=== PATIENT | female | born 1965 | race Caucasian/White ===

== ENCOUNTER 2017-01-15 14:59 | Inpatient (IN) ==
[2017-01-15] MEDS ORDERED: Ondansetron 4 MG/2 ML VIAL IVP ONE (16:09)
[2017-01-15] MEDS ORDERED: *HR* HYDROmorphone (PF) 1 MG/ML SYRINGE IVP ONE (16:09)
--- NOTE | 2017-01-15 16:10 | Emergency Department Note ---
Disposition Clinical Impression: Superficial femoral artery occlusion Disposition: Admitted As Inpatient Referrals: Pardeep Schaeffer DO [Primary Care Provider] - Forms: ED Satisfaction Letter Extremity Problem HPI - General Chief complaint: ED Extremity Problem,Nontraumatic Stated complaint: Abnormal MARISELA right leg Source: patient Limitations: no limitations Nursing Notes Reviewed: Yes Vital Signs Reviewed: Yes - History of Present Illness Pt Subjective Complaint: extremity pain, extremity swelling Onset (ago): week(s) (1) Consistency: constant Injury Location: right, lower extremity Pain Scale: 10 Quality: aching Radiation: none Improves with: immobilization, elevation Worsens with: weight bearing, walking, palpation Associated symptoms: Reports: denies other symptoms - Related Data Home Medications Medication Instructions Recorded Confirmed Albuterol Sulfate 1 puff PO Q6-8H 04/13/15 01/09/17 Budesonide/Formoterol 160/4.5 2 puff IH BIDR 04/13/15 01/09/17 [Symbicort] CarBAMazepine XR [Tegretol Xr] 400 mg PO Q8HR 04/13/15 01/09/17 Duloxetine HCl 60 mg PO TID 04/13/15 01/09/17 Invega 1 tab PO DAILY 04/13/15 01/09/17 Invega 1 tab PO QPM 04/13/15 01/09/17 Lisinopril/Hydrochlorothiazide 1 tab PO DAILY 04/13/15 01/09/17 Metformin HCl 1 tab PO BID 04/13/15 01/09/17 Simvastatin 1 tab PO DAILY 04/13/15 01/09/17 Loratadine [Allergy Relief] 10 mg PO DAILY 06/29/16 01/09/17 SUMAtriptan [Imitrex] 50 mg PO DAILY 06/29/16 01/09/17 Previous Rx's Medication Instructions Recorded predniSONE [PredniSONE] 40 mg PO DAILY #10 tablet 06/29/16 GuaiFENesin/Dextromethorphan 1 each PO BID 7 Days 07/11/16 [Mucus Dm Max 1,200-60 mg Tab] Acetaminophen w/Cod 300-30 mg 1 each PO Q6HR #12 tablet 01/09/17 [Tylenol w/Codeine #3] Allergies Allergy/AdvReac Type Severity Reaction Status Date / Time divalproex sodium Allergy Unconscious Verified 01/15/17 15:10 [From Depakote] hydrocodone Allergy Itching Verified 01/15/17 15:10 orange Allergy Swelling Verified 01/15/17 15:10 of Lip/Tongue/Throat Penicillins [PCN] Allergy Rash Verified 01/15/17 15:10 venom-honey bee Allergy Swelling Verified 01/15/17 15:10 [bee venom (honey bee)] of Lip/Tongue/Throat All systems ED: reviewed and negative except as stated. 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 - Social History Smoking Status: Current every day smoker Smokeless Tobacco Status: No Alcohol use: Reports: none Drug use: Reports: marijuana Physical Exam - General Limitations: no limitations General appearance: alert - Head Head exam: atraumatic, normocephalic, normal inspection - Eye Eye exam: Present: normal appearance, PERRL, EOMI - ENT ENT exam: normal exam, normal oropharynx, mucous membranes moist - Neck Neck exam: Present: normal inspection, full ROM, trachea midline - Chest Chest inspection: Present: normal inspection, symmetric chest wall rise - Cardiovascular Cardiovascular exam: Present: regular rate, normal rhythm, normal heart sounds - Abdominal Exam Abdominal exam: Present: soft, Non-Tender. Absent: tenderness, distention, guarding, rebound, rigidity - Expanded Lower Extremity Exam Foot/toe exam: Present: other (right foot cool to touch, painful, ecchymosis) - Neurological Exam Neurological exam: Present: alert, oriented X3 - Psychiatric Psychiatric exam: Present: normal affect, normal mood Course Course Narrative: She was seen in the ER on the for syncope and right foot injury x-ray was negative she saw orthopedics today Dr. Brand who is concerned about her blood flow in the right lower extremity MARISELA on the right was 0.36. - Consultations Consultation #1: dr. alcaraz will see in ER Time: 18:21 Vital Signs Temperature 98.3 F 01/15/17 15:06 Pulse Rate 92 01/15/17 15:06 Respiratory Rate 20 01/15/17 15:06 Blood Pressure 134/82 01/15/17 15:06 O2 Sat by Pulse Oximetry 96 01/15/17 15:06 Temperature 98.3 F 01/15/17 15:06 Pulse Rate 85 01/15/17 16:53 Respiratory Rate 16 01/15/17 16:53 Blood Pressure 108/81 01/15/17 16:53 O2 Sat by Pulse Oximetry 95 01/15/17 16:53 Oxygen Delivery Oxygen Delivery Nasal Cannula Extremity Problem, Nontraumati - Medical Records Medical records reviewed: Yes I reviewed the patient's medical records. - Lab Data Lab results reviewed: Yes I reviewed the patient's lab results. Result diagrams: 01/15/17 16:28 01/15/17 16:28 Lab Results 01/15/17 01/15/17 01/15/17 Range/Units 16:28 16:28 16:28 WBC 12.3 H (4.3-11.1) K/mcL RBC 5.71 H (3.82-4.97) M/mcL Hgb 17.6 H (11.5-15.4) g/dL Hct 53.7 H (35.3-44.9) % MCV 94.0 (83.0-100.0) fL MCH 30.8 (28.0-33.3) pg MCHC 32.8 (31.6-35.5) g/dL RDW 16.1 H (11.5-14.5) % Plt Count 258 (140-400) K/mcL MPV 8.9 L (9.4-12.4) fL Immature Gran % 0.4 (0-4) % Seg Neutrophils % 76.0 % Lymphocytes % 16.4 % Monocytes % 5.6 % Eosinophils % 1.1 % Basophils % 0.5 % Neutrophils # 9.4 H (1.6-8.9) K/mcL Lymphocytes # 2.0 (0.6-4.6) K/mcL Monocytes # 0.7 (0.0-1.3) K/mcL Eosinophils # 0.1 (0.0-0.6) K/mcL Basophils # 0.1 (0.0-0.2) K/mcL PT 12.6 H (9.4-12.1) Seconds INR 1.2 APTT 28.7 (26.0-36.0) Seconds Sodium 143 (136-145) mEq/L Potassium 3.8 (3.5-4.5) mEq/L Chloride 104 (98-109) mEq/L Carbon Dioxide 29 (19-29) mEq/L BUN 14 (7-20) mg/dL Creatinine 0.78 (0.57-1.11) mg/dL Est GFR ( Amer) > 60 (> 60) Est GFR (Non-Af Amer) > 60 (> 60) BUN/Creatinine Ratio 18 (6-26) Glucose 83 (70-99) mg/dL Calculated Osmolality 296 (280-300) Calcium 9.0 (8.6-10.8) mg/dL Troponin I (0-0.03) ng/mL 01/15/17 Range/Units 16:28 WBC (4.3-11.1) K/mcL RBC (3.82-4.97) M/mcL Hgb (11.5-15.4) g/dL Hct (35.3-44.9) % MCV (83.0-100.0) fL MCH (28.0-33.3) pg MCHC (31.6-35.5) g/dL RDW (11.5-14.5) % Plt Count (140-400) K/mcL MPV (9.4-12.4) fL Immature Gran % (0-4) % Seg Neutrophils % % Lymphocytes % % Monocytes % % Eosinophils % % Basophils % % Neutrophils # (1.6-8.9) K/mcL Lymphocytes # (0.6-4.6) K/mcL Monocytes # (0.0-1.3) K/mcL Eosinophils # (0.0-0.6) K/mcL Basophils # (0.0-0.2) K/mcL PT (9.4-12.1) Seconds INR APTT (26.0-36.0) Seconds Sodium (136-145) mEq/L Potassium (3.5-4.5) mEq/L Chloride (98-109) mEq/L Carbon Dioxide (19-29) mEq/L BUN (7-20) mg/dL Creatinine (0.57-1.11) mg/dL Est GFR ( Amer) (> 60) Est GFR (Non-Af Amer) (> 60) BUN/Creatinine Ratio (6-26) Glucose (70-99) mg/dL Calculated Osmolality (280-300) Calcium (8.6-10.8) mg/dL Troponin I 0.00 (0-0.03) ng/mL - Radiology Data Radiology results reviewed: Yes I reviewed the patient's radiology results. Critical Care Time Critical Care Time: Yes Total Critical Care Time: 35 Attestation: Critical care performed: Time is exclusive of separately billable procedures. Time includes: direct patient care, patient reassessment, coordination of patient care, interpretation of data (laboratory data, radiology data, and respiratory data), review of patient's medical records, medical consultation and documentation of patient care. Procedures included in critical care time: Procedures excluded from critical care time:
[2017-01-15 16:37] LABS: Basophils # 0.1 K/mcL (0.0-0.2); Basophils % 0.5 %; Eosinophils # 0.1 K/mcL (0.0-0.6); Eosinophils % 1.1 %; Hematocrit 53.7 % (35.3-44.9); Hemoglobin 17.6 g/dL (11.5-15.4); Immature Granulocytes % 0.4 % (0-4); Lymphocytes % 16.4 %; Mean Corpuscular HGB Conc 32.8 g/dL (31.6-35.5); Mean Corpuscular Hemoglobin 30.8 pg (28.0-33.3); Mean Platelet Volume 8.9 fL (9.4-12.4); Monocytes # 0.7 K/mcL (0.0-1.3); Monocytes % 5.6 %; Neutrophils # 9.4 K/mcL (1.6-8.9); Platelet Count 258 K/mcL (140-400); Red Blood Count 5.71 M/mcL (3.82-4.97); Red Cell Distribution Width 16.1 % (11.5-14.5)
[2017-01-15 16:52] LABS: INR 1.2; Prothrombin Time 12.6 Seconds (9.4-12.1)
[2017-01-15 16:55] LABS: Activated Partial Thrombo Time 28.7 Seconds (26.0-36.0)
[2017-01-15 16:56] LABS: BUN/Creatinine Ratio 18 (6-26); Blood Urea Nitrogen 14 mg/dL (7-20); Carbon Dioxide 29 mEq/L (19-29); Chloride 104 mEq/L (98-109); Glucose 83 mg/dL (70-99); Osmolality,Calculated 296 (280-300); Potassium 3.8 mEq/L (3.5-4.5); Sodium 143 mEq/L (136-145); eGFR For African Americans > 60 (> 60); eGFR For Non-African Americans > 60 (> 60)
[2017-01-15] MEDS ORDERED: *HR* Heparin 5,000 UNIT/ML VIAL IVP ONE (18:19)
[2017-01-15] MEDS ORDERED: *HR* Heparin 5,000 UNIT/ML VIAL IVP PRN ×2 (18:19)
[2017-01-15] MEDS ORDERED: Heparin 25,000 UNIT/500 ML D5W 25,000 UNIT/500 ML MLS IVC SCH (18:30)
--- NOTE | 2017-01-15 18:57 | Vascular/Endovascular H&P ---
Date of Encounter: 01/15/17 Time of Encounter: 18:30 Assessment and Plan (1) Atherosclerosis of right lower extremity with rest pain Current Visit: Yes Status: Chronic The patient has acute on chronic right lower extremity limb ischemia. Her symptoms have been present since at least 01/09/17. She has a dminished pulse exam. Her RABI is severely abnormal. Her CTA reveals occlusion of her right superficial femoral artery. Given the persistent and prolonged symptoms, this is not likely acute on chronic limb ischemia. Her pedal signals are monophasic. Her forefoot and toes have chronic ischemic changes. She has intact sensation, She reports pain with active movement of her toes. She will be admitted and started on a heparin drip. She has been scheduled for a right lower extremity thrombectomy with possible bypass. The risks, benefits and alternatives were discussed and all questions were answered. She expressed understanding and wishes to proceed. Qualifiers: Peripheral atherosclerosis artery type: [place] artery Qualified Code(s): I70.221 - Atherosclerosis of [place] arteries of extremities with rest pain, right leg (2) COPD (chronic obstructive pulmonary disease) Current Visit: Yes Status: Chronic Qualifiers: COPD type: emphysema Emphysema type: panlobular Qualified Code(s): J43.1 - Panlobular emphysema (3) Mixed hyperlipidemia Current Visit: Yes Status: Acute She was counseled regarding atherosclerotic risk factor reduction. (4) Essential hypertension Current Visit: Yes Status: Chronic (5) Dehydration Current Visit: Yes Status: Acute She will be started on intravenous hydration. (6) Tobacco abuse Current Visit: Yes Status: Acute She was counseled regarding smoking cessation. She was advised that continued smoking will likely result in limb loss and may result in heart attack, stroke, organ failure or . History of Present Illness Chief complaint: Right foot pain HPI: Ms. Lopez is a 51 year old female with a history of hypertension, sleep apnea, COPD and tobacco abuse who reportedly fell out of bed. She noticed her foot was bruised. She states that she waited 2 days to seek medical attention. On she was seen in the [facility] ER and was diagnosed with musculoskeletal injuries. At that time, she complained of significant right forefoot pain. She reportedly was unable to bear weight on the foot. She underwent an xray and no fracture was noted. The patient was discharged to home. She states that she continued to have pain in the forefoot since her discharge. She reports that her foot has not changed since she left the ER. She was seen by sports medicine today in the clinic and she was found to have a diminished pulse exam. She was sent to the ER. Her MARISELA was noted to be abnormal and A CT scan was ordered. This revealed a right superficial femoral artery occlusion with above knee reconstitution. Vascular surgery was consulted for further evaluation. She reports a history of an irregular heart rate. She denies any recent palpitations. She denies chest pain or shortness of breath. Past Med Surg Social Fam HX - Past Medical History Medical history: asthma, cancer, COPD, CVA, diabetes, hyperlipidemia, hypertension, seizures, other Psychiatric history: anxiety, bipolar, depression, panic disorder, prior suicide attempt, schizophrenia, previous psychiatric hospitalization - Past Surgical History Surgical History: other, - Social History Smoking Status: Current every day smoker Smokeless Tobacco Status: No Alcohol use: none Drug use: marijuana Medications and Allergies Albuterol Sulfate 1 puff PO Q6-8H 04/13/15 [History] Budesonide/Formoterol 160/4.5 [Symbicort] 2 puff IH BIDR 04/13/15 [History] CarBAMazepine XR [Tegretol Xr] 400 mg PO Q8HR 04/13/15 [History] Duloxetine HCl 60 mg PO TID 04/13/15 [History] Invega 1 tab PO DAILY 04/13/15 [History] Invega 1 tab PO QPM 04/13/15 [History] Lisinopril/Hydrochlorothiazide 1 tab PO DAILY 04/13/15 [History] Metformin HCl 1 tab PO BID 04/13/15 [History] Simvastatin 1 tab PO DAILY 04/13/15 [History] Loratadine [Allergy Relief] 10 mg PO DAILY 06/29/16 [History] SUMAtriptan [Imitrex] 50 mg PO DAILY 06/29/16 [History] predniSONE [PredniSONE] 40 mg PO DAILY #10 tablet 06/29/16 [Rx] GuaiFENesin/Dextromethorphan [Mucus Dm Max 1,200-60 mg Tab] 1 each PO BID 7 Days 07/11/16 [Rx] Acetaminophen w/Cod 300-30 mg [Tylenol w/Codeine #3] 1 each PO Q6HR #12 tablet 01/09/17 [Rx] Allergies divalproex sodium [From Depakote] Allergy (Verified 01/15/17 15:10) Unconscious hydrocodone Allergy (Verified 01/15/17 15:10) Itching orange Allergy (Verified 01/15/17 15:10) Swelling of Lip/Tongue/Throat Penicillins [PCN] Allergy (Verified 01/15/17 15:10) Rash venom-honey bee [bee venom (honey bee)] Allergy (Verified 01/15/17 15:10) Swelling of Lip/Tongue/Throat All Systems Review: A 10-system review of systems was performed and is negative for pertinent findings except as documented above in the HPI. - Constitutional Constitutional: no chills, no fever(s) - Cardiovascular Cardiovascular: no chest pain at rest, no chest pain with exertion, no dyspnea at rest, no dyspnea on exertion, no palpitations - Vascular Vascular: lower extremity discoloration, lower extremity coldness Exam General: Present: Conversant, No Apparent Distress HEENT: Present: Atraumatic, Normocephaly, Pupils equal Neck: Absent: JVD, Lymphadenopathy, Left Carotid bruit, Right Carotid bruit, Tracheal deviation Cardiac: Present: Reg Rate and Rhythm, Normal S1 and S2, No Murmur Lungs: Present: Normal Breath Sounds, No Wheeze, Rales, Rhonchi Neuro: Present: Alert and responsive, Cranial nerves grossly intact, Motor nerves grossly intact, Sensory nerves grossly intact (Right toes sensitive to light touch and tender to palpation) Vascular: Present: Normal capillary refill, Pulse, diminished (Bilateral pedal signals are monophasic), Cyanosis (at right forefoot and toes), Other ( Compartments are soft) Skin: Present: Other (right forefoot and toes cyanotic) Musculoskeletal: Present: No Chest Wall Tenderness Results 01/15/17 16:28 01/15/17 16:28 - Imaging / Other Tests Non Invasive Vascular Testing: report reviewed, image reviewed (Venous duplex negative. RABI severely abnormal. LABI normal) CT/CTA: report reviewed, image reviewed (Right superificial femoral and popliteal artery occlusion.)
[2017-01-15] MEDS ORDERED: NON-FORMULARY MEDICATION 1 EACH EACH (Oxygen [Oxygen] 2 L) NS SCH (19:30)
[2017-01-15] MEDS ORDERED: Albuterol 2.5 MG/3 ML NEBULIZER IH PRN (19:30)
[2017-01-15] MEDS ORDERED: Nystatin Cream 15 GM TUBE TP PRN (19:30)
[2017-01-15] MEDS ORDERED: *HR* Morphine 2 MG/ML SYRINGE IVP PRN (19:33)
[2017-01-15] MEDS ORDERED: Ondansetron 4 MG/2 ML VIAL IVP PRN (19:33)
[2017-01-15] MEDS ORDERED: *HR* Dextrose 50 % in Water (Syg) 50 ML SYRINGE IVP PRN (19:33)
[2017-01-15] MEDS ORDERED: Dextrose Gel 15 GM PO PRN ×2 (19:33)
[2017-01-15] MEDS ORDERED: D5% in Water 1,000 ML IVC PRN (19:33)
[2017-01-15] MEDS ORDERED: *HR* Labetalol 20 MG/4 ML SYRINGE IVP PRN (19:33)
[2017-01-15] MEDS ORDERED: Naloxone 0.4 MG/ML INJ IVP PRN (19:33)
[2017-01-15] MEDS ORDERED: 0.9 % Sodium Chloride 500 ML IVC SCH (19:45)
--- NOTE | 2017-01-15 20:38 | Anesthesia Evaluation PreOp ---
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: Seizures, CVA (residual right weakness and sensation loss) Other Medical History: Other (anxiety/bipolar, panic d/o, H/O suicide attempt) Anesthesia History: No Prior Anesthetic Complications, Past Anesthesia Alcohol Use: none Drug use: marijuana Medications and Allergies Albuterol Sulfate [Albuterol Inhaler] 2 puff IH QID #0 04/13/15 [History] Budesonide/Formoterol 160/4.5 [Symbicort] 2 puff IH BIDR 04/13/15 [History] Duloxetine HCl [Cymbalta] 60 mg PO QAM #0 04/13/15 [History] Simvastatin [Zocor] 20 mg PO HS #0 04/13/15 [History] metFORMIN [Glucophage] 500 mg PO BIDWM #0 04/13/15 [History] SUMAtriptan [Imitrex] 50 mg PO DAILY PRN 06/29/16 [History] Albuterol Neb [Proventil Neb] 2.5 mg IH Q6H PRN 01/15/17 [History] Buspirone HCl [Buspar] 15 mg PO BID 01/15/17 [History] CarBAMazepine XR [Tegretol Xr] 300 mg PO BID 01/15/17 [History] Docusate [Colace] 100 mg PO DAILY PRN 01/15/17 [History] Guaifenesin [Mucinex] 600 mg PO BID 01/15/17 [History] HYDROcodone/Acet 7.5/325 mg [[place] 7.5-325 mg] 1 tab PO Q12H PRN 01/15/17 [ History] Lisinopril [Zestril] 10 mg PO DAILY 01/15/17 [History] Loxapine Succinate [Loxapine] 10 mg PO BID 01/15/17 [History] Melatonin 5 mg PO HS 01/15/17 [History] Mirtazapine [Remeron] 15 mg PO HS 01/15/17 [History] Nystatin Cream [Mycostatin Cream] 1 appl TP BID PRN 01/15/17 [History] Oxygen 2 l NS CONT 01/15/17 [History] Tiotropium [Spiriva] 18 mcg IH 0700 01/15/17 [History] Allergies divalproex sodium [From Depakote] Allergy (Verified 01/15/17 15:10) Unconscious hydrocodone Allergy (Verified 01/15/17 15:10) Itching orange Allergy (Verified 01/15/17 15:10) Swelling of Lip/Tongue/Throat Penicillins [PCN] Allergy (Verified 01/15/17 15:10) Rash venom-honey bee [bee venom (honey bee)] Allergy (Verified 01/15/17 15:10) Swelling of Lip/Tongue/Throat - Meds/Allergy Pre-op Review Medications Reviewed: Yes Allergies Reviewed: Yes Beta Blockers on Current Med List: No Anesthesia Results - Labs 01/15/17 16:28 01/15/17 16:28 Laboratory Tests 01/15/17 16:28 PT 12.6 H INR 1.2 APTT 28.7 - Imaging EKG: report reviewed (01/09/2017 ST, poor R wave progression) Additional studies: 12/14/2015 Echo LVEF 60% no significant valvular dysfunction 05/01/2015 Stress perfusion imaging was negative for ischemia or infarct EF 68% Anesthesia Exam Vital Signs/O2 Sat/Glucose, Most Recent Temp Pulse Resp BP Pulse Ox 98.3 F 84 20 111/82 96 01/15/17 15:06 01/15/17 20:00 01/15/17 20:00 01/15/17 20:00 01/15/17 20:00 Height: 4'11''/1.5 m Weight: 225 lbs/102.058 kg Pain Scale: 7 Pain Scale Used: Numeric (1 - 10) - HEENT Pupil (Motor): EOMI Mallampati: II Teeth: Edentulous Oral Opening: Greater than 3 - VOCATIONAL COUNSELOR LOC: Oriented VOCATIONAL COUNSELOR Motor: Normal LUE, Normal LLE, Normal Face, Deficit RUE, Deficit RLE VOCATIONAL COUNSELOR Sensory: Normal: LUE, LLE, Face, Deficit: RUE, RLE - Cardiac Rhythm: Regular Murmur: None - Pulmonary Breath Sounds: bilateral Clear Respiratory Effort: Symmetrical Anesthesia Assess/Plan ASA Score: 4 Modified Grady Scale for Level of Consciousness: Cooperative, oriented, and tranquil Anesthetic Plan: General Monitoring Plan: Standard Monitors Recovery Plan: PACU
[2017-01-15] MEDS ORDERED: 0.9 % Sodium Chloride 1,000 ML IVC SCH (20:55)
[2017-01-15] MEDS ORDERED: Mirtazapine 15 MG TABLET PO SCH (21:00)
[2017-01-15] MEDS ORDERED: Melatonin 3 MG TABLET PO SCH (21:00)
[2017-01-15] MEDS ORDERED: Insulin LISPRO 300 UNITS/3 ML VIAL SQ SCH (21:00)
[2017-01-15] MEDS: CarBAMazepine XR (12 hr) 100 MG TAB PO SCH (21:20)
[2017-01-15] MEDS: Budesonide/Formoterol 160/4.5 MDI IH SCH (21:43)
[2017-01-15] MEDS: *HR* OxyCODONE/APAP 5/325 TABLET PO PRN (21:44)
[2017-01-15] MEDS: (Loxapine Succinate [Loxapine] 10 MG) PO SCH (23:14)
[2017-01-15] MEDS: Aspirin Enteric Coated 81 MG Tablet PO SCH (23:15)
[2017-01-15] MEDS: 0.9 % Sodium Chloride 1,000 ML IVC SCH (23:16)
[2017-01-16 01:08] LABS: Basophils # 0.1 K/mcL (0.0-0.2); Basophils % 0.4 %; Eosinophils # 0.2 K/mcL (0.0-0.6); Eosinophils % 1.4 %; Hematocrit 49.8 % (35.3-44.9); Immature Granulocytes % 0.3 % (0-4); Immature Platelets 2.7 % (1.1-6.1); Lymphocytes # 1.8 K/mcL (0.6-4.6); Lymphocytes % 16.2 %; Mean Corpuscular HGB Conc 32.1 g/dL (31.6-35.5); Mean Corpuscular Hemoglobin 30.7 pg (28.0-33.3); Mean Corpuscular Volume 95.4 fL (83.0-100.0); Mean Platelet Volume 9.1 fL (9.4-12.4); Monocytes # 0.7 K/mcL (0.0-1.3); Monocytes % 6.1 %; Neutrophils # 8.6 K/mcL (1.6-8.9); Platelet Count 257 K/mcL (140-400); Red Blood Count 5.22 M/mcL (3.82-4.97); Red Cell Distribution Width 16.1 % (11.5-14.5); Segmented Neutrophils % 75.6 %
[2017-01-16] MEDS: *HR* Metoprolol 5 MG/5 ML VIAL IVP SCH ×4 (01:15→23:25)
[2017-01-16 01:34] LABS: BUN/Creatinine Ratio 17 (6-26); Blood Urea Nitrogen 14 mg/dL (7-20); Calcium 8.5 mg/dL (8.6-10.8); Carbon Dioxide 32 mEq/L (19-29); Chloride 102 mEq/L (98-109); Glucose 129 mg/dL (70-99); Osmolality,Calculated 298 (280-300); Sodium 143 mEq/L (136-145); eGFR For African Americans > 60 (> 60); eGFR For Non-African Americans > 60 (> 60)
[2017-01-16] MEDS: *HR* OxyCODONE/APAP 5/325 TABLET PO PRN ×2 (04:50→09:19)
[2017-01-16] MEDS ORDERED: Tiotropium 18 MCG inhalation IH SCH (07:00)
[2017-01-16] MEDS ORDERED: Insulin LISPRO 300 UNITS/3 ML VIAL SQ SCH ×2 (07:30→21:00)
[2017-01-16] MEDS: CarBAMazepine XR (12 hr) 100 MG TAB PO SCH ×2 (08:18→19:56)
[2017-01-16] MEDS: Aspirin Enteric Coated 81 MG Tablet PO SCH (08:18)
[2017-01-16] MEDS: (Loxapine Succinate [Loxapine] 10 MG) PO SCH (08:19)
[2017-01-16] MEDS ORDERED: SUMAtriptan succinate 50 MG TABLET PO PRN ×2 (09:00→15:31)
[2017-01-16] MEDS: 0.9 % Sodium Chloride 1,000 ML IVC SCH ×2 (09:19→15:45)
[2017-01-16] MEDS ORDERED: Lidocaine -MPF 4% 5 ML AMPUL ONE (10:18)
[2017-01-16] MEDS: Budesonide/Formoterol 160/4.5 MDI IH SCH ×2 (10:40→21:56)
[2017-01-16] MEDS ORDERED: *HR* FentaNYL (PF) 100 MCG/2 ML VIAL ONE (10:44)
[2017-01-16] MEDS ORDERED: *HR* Propofol 200 MG/20 ML VIAL IVP ONE (10:44)
[2017-01-16] MEDS ORDERED: *HR* Heparin 5,000 UNIT/ML VIAL ONE (10:46)
[2017-01-16] MEDS ORDERED: Water for inj. (sterile) 10 ML IV ONE (10:46)
[2017-01-16] MEDS ORDERED: Lidocaine -MPF 2% 2 ML VIAL ONE (10:54)
[2017-01-16] MEDS ORDERED: *HR* Succinylcholine 200 MG/10 ML VIAL IVP ONE (10:54)
[2017-01-16] MEDS ORDERED: *HR* Phenylephrine 10 MG/ML VIAL ONE (10:54)
[2017-01-16] MEDS ORDERED: Dexamethasone 4 MG/ML VIAL ONE (10:54)
[2017-01-16] MEDS ORDERED: Ondansetron 4 MG/2 ML VIAL ONE (10:54)
[2017-01-16] MEDS ORDERED: EPHEDrine 50 MG/ML VIAL ONE (10:55)
[2017-01-16] MEDS ORDERED: *HR* Midazolam HCl 2 MG/2 ML VIAL ONE (10:58)
[2017-01-16] MEDS ORDERED: Acetaminophen IV 1,000 MG/100 ML INFUS..BTL ONE (11:12)
[2017-01-16] MEDS ORDERED: Ipratropium/Albuterol Neb 3 ML ONE (11:17)
[2017-01-16] MEDS ORDERED: Gabapentin 300 MG CAPSULE ONE (11:19)
[2017-01-16] MEDS ORDERED: Heparin 1,000 UNITS/500 mL NS 500 ML ONE (11:43)
[2017-01-16] MEDS ORDERED: Vancomycin 1,000 MG VIAL ONE (11:43)
[2017-01-16] MEDS ORDERED: Nicotine 21 MG PATCH.TD24 TD SCH (14:45)
--- NOTE | 2017-01-16 14:52 | Discharge Summary ---
Date of Encounter: 01/17/17 Time of Encounter: 07:44 (seen by Dr. Jacob) - Discharge Diagnosis (1) Atherosclerosis of right lower extremity with rest pain Priority: Primary Status: Chronic Comments: The patient underwent a right lower extremity endarterectomy and thrombectomy. She tolerated the procedure well. She was discharged on postoperative day #1 in stable condition without complication. Qualifiers: Peripheral atherosclerosis artery type: [place] artery Qualified Code(s): I70.221 - Atherosclerosis of [place] arteries of extremities with rest pain, right leg (2) COPD (chronic obstructive pulmonary disease) Priority: Secondary Status: Chronic Qualifiers: COPD type: emphysema Emphysema type: panlobular Qualified Code(s): J43.1 - Panlobular emphysema (3) Mixed hyperlipidemia Priority: Secondary Status: Acute (4) Essential hypertension Priority: Secondary Status: Chronic Comments: She was counseled regarding atherosclerotic risk factor reduction. (5) Dehydration Priority: Secondary Status: Chronic (6) Tobacco abuse Priority: Secondary Status: Chronic Comments: She was counseled regarding smoking cessation. - Discharge Medications Prescriptions: OxyCODONE/APAP 5/325 [Percocet 5/325 MG] 1 each PO Q4HR PRN #30 tablet PRN Reason: postoperative pain Nicotine Patch [Nicoderm] 21 mg TD DAILY #30 patch.td24 Rivaroxaban [Xarelto] 20 mg PO DAILY #30 tablet Home Medications: Albuterol Sulfate [Albuterol Inhaler] 2 puff IH QID #0 04/13/15 [History] Budesonide/Formoterol 160/4.5 [Symbicort] 2 puff IH BIDR 04/13/15 [History] Duloxetine HCl [Cymbalta] 60 mg PO QAM #0 04/13/15 [History] Simvastatin [Zocor] 20 mg PO HS #0 04/13/15 [History] metFORMIN [Glucophage] 500 mg PO BIDWM #0 04/13/15 [History] SUMAtriptan [Imitrex] 50 mg PO DAILY PRN 06/29/16 [History] Albuterol Neb [Proventil Neb] 2.5 mg IH Q6H PRN 01/15/17 [History] Buspirone HCl [Buspar] 15 mg PO BID 01/15/17 [History] CarBAMazepine XR [Tegretol Xr] 300 mg PO BID 01/15/17 [History] Docusate [Colace] 100 mg PO DAILY PRN 01/15/17 [History] Guaifenesin [Mucinex] 600 mg PO BID 01/15/17 [History] Lisinopril [Zestril] 10 mg PO DAILY 01/15/17 [History] Loxapine Succinate [Loxapine] 10 mg PO BID 01/15/17 [History] Melatonin 5 mg PO HS 01/15/17 [History] Mirtazapine [Remeron] 15 mg PO HS 01/15/17 [History] Nystatin Cream [Mycostatin Cream] 1 appl TP BID PRN 01/15/17 [History] Oxygen 2 l NS CONT 01/15/17 [History] Tiotropium [Spiriva] 18 mcg IH 0700 01/15/17 [History] Aspirin Enteric Coated [Aspirin EC] 81 mg PO DAILY tablet. 01/16/17 [Rx] Nicotine Patch [Nicoderm] 21 mg TD DAILY #30 patch.td24 01/16/17 [Rx] OxyCODONE/APAP 5/325 [Percocet 5/325 MG] 1 each PO Q4HR PRN #30 tablet 01/16/17 [Rx] Rivaroxaban [Xarelto] 20 mg PO DAILY #30 tablet 01/16/17 [Rx] Allergies/Adverse Reactions: Allergies divalproex sodium [From Depakote] Allergy (Verified 01/15/17 15:10) Unconscious hydrocodone Allergy (Verified 01/15/17 15:10) Itching orange Allergy (Verified 01/15/17 15:10) Swelling of Lip/Tongue/Throat Penicillins [PCN] Allergy (Verified 01/15/17 15:10) Rash venom-honey bee [bee venom (honey bee)] Allergy (Verified 01/15/17 15:10) Swelling of Lip/Tongue/Throat Date of admission: 01/15/17 21:37 Primary care physician: Pardeep Schaeffer DO Procedure(s) Performed: Right lower extremity thrombectomy Discharging clinician: Ronnie Stephens Anticipated date of discharge: 01/16/17 - Patient Status Disposition: Home, Self-Care - Discharge Instructions Instructions: Peripheral Vascular Disorders (DC), Chronic Obstructive Pulmonary Disease (DC) Follow Up With: Pardeep Schafefer DO [Primary Care Provider] - (sent web request for 5-7 day follow up on 01-16-17 @ [id number]) Ronnie Stephens MD [Partnered Physician] - 02/02/17 8:30 am Helena Keenan DO [Resident] - 01/20/17 2:00 pm - Hospital Course Hospital course: Ms. Lopez is a 51 year old female - Time Spent with Patient Total time spent providing and/or coordinating discharge services: Exam Vital Signs, Last 4 Hours Resp Pulse Ox 01/16/17 10:50 18 96 - VTE Reasons for not Prescribing Prophylaxis: Not indicated-Anticoagulated or INR therapeutic
--- NOTE | 2017-01-16 14:54 | Operative Note ---
Date of procedure: 01/16/17 Pre-op diagnosis: Peripheral vascular disease with rest pain Post-op diagnosis: same Procedure: 1. Right lower extremity thrombectomy with5 amharic paris embolectomy catheter. 2. Right superficial and deep femoral endarterectomy with bovine pericardial patchangioplasty Complications: None Anesthesia: JOVANIA Surgeon: Ronnie Stephens Estimated blood loss (cc): 100 Specimen: Right lower extremity thrombus and plaque Condition: stable Disposition: PACU Procedure in Detail: Indications: The patient is a 51 year old female with multiple medical comorbidities who presented to the ER with complaints of a cold right lower extremity. She was found to have a femoral to popliteal artery occlusion. Revascularization was recommended to reduce her risk of limb loss. Procedure: The patient was identified in the preoperative area. The risks, benefits, and alternatives of the procedure were discussed. All questions were answered. The patient was taken to the operating room and placed in supine position on the operating room table. After the induction of general endotracheal anesthesia, she was cleaned and draped in normal sterile fashion. An oblique incision was made over the right groin sharply. Hemostasis was obtained with electrocautery. Through a process of blunt, sharp, and electrocautery dissection, the right femoral vessels were dissected circumferentially and surrounded with vessel loops. An incision was made on the right medial distal thigh sharply. The common femoral artery was pulsatile. However, the deep and superficial femoral arteries were pulseless. The distal common femoral artery and deep femoral artery were noted to be firm. The patient received 500 units of heparin. After waiting adequate time for the heparin to circulate, the vessels were occluded. A longitudinal arteriotomy was made into the common femoral artery and extended into the origin of the superficial femoral artery. Significant plaque and thrombus was present. A 5 amharic paris embolectomy catheter was then advanced into the below knee popliteal artery. The baloon was inflated and the catheter was withdrawn. A well organized thrombus was removed. Mutliple additional passes were performed and additional thrombus was removed. Additional passes were made with the catheter until no additional thrombus was retrieved and retrograde flow was noted. Heparin was infused in the superficial femoral artery and the artery was occluded. The deep femoral artery had minimal retrograde flow upon release of the loop. The deep femoral artery was noted to have a firm plaque. An endarterectomy was required on the distal common femoral and proximal deep femoral arteries under direct vision. After removal of the plaque, retrograde deep femoral flow was observed. the vessel was flushed with heparinized saline and then reoccluded. A bovine pericardial patch was cut to fit the defect and sutured in place with a running 6-0 prolene. Prior to completing the patch, the vessels were flushed and heparinized saline was infused. The patch was completed and flow was restored. Polyphasic signals were noted at the dorsalis pedis artery and posterior tibial artery. Wounds were irrigated with antibiotic-containing saline. Thrombin and gelfoam were used to aid in hemostasis. Platelet rich and platelet poor plasma were infused into the wounds. Meticulous hemostasis was obtained throughout the wound with electrocautery. Wounds were reapproximated with layers of 2-0 and 3-0 Vicryl. Skin was reapproximated with 3-0 Monocryl. Sterile dressing was applied. The patient was extubated and taken to recovery room in stable condition.
[2017-01-16] MEDS ORDERED: Ondansetron 4 MG/2 ML VIAL IVP PRN (15:31)
[2017-01-16] MEDS ORDERED: Naloxone 0.4 MG/ML INJ IVP PRN (15:31)
[2017-01-16] MEDS ORDERED: *HR* Morphine 2 MG/ML SYRINGE IVP PRN (15:31)
[2017-01-16] MEDS ORDERED: D5% in Water 1,000 ML IVC PRN (15:31)
[2017-01-16] MEDS ORDERED: *HR* OxyCODONE/APAP 5/325 TABLET PO PRN (15:31)
[2017-01-16] MEDS ORDERED: *HR* Dextrose 50 % in Water (Syg) 50 ML SYRINGE IVP PRN (15:31)
[2017-01-16] MEDS ORDERED: *HR* Labetalol 20 MG/4 ML SYRINGE IVP PRN (15:31)
[2017-01-16] MEDS ORDERED: Dextrose Gel 15 GM PO PRN ×2 (15:31)
--- NOTE | 2017-01-16 15:44 | Anesthesia Evaluation Post Op ---
Date of Encounter: 01/16/17 Time of Encounter: 15:30 - Vital Signs Vital Signs: Vital Signs/O2 Sat/Glucose, Most Current Temp Pulse Resp BP Pulse Ox 01/16/17 15:22 100.2 F H 76 14 106/66 93 01/16/17 15:12 100.2 F H 76 16 102/64 92 01/16/17 15:02 100.2 F H 84 16 99/63 92 01/16/17 14:52 91 16 92/49 93 01/16/17 14:42 89 16 98/56 91 01/16/17 14:32 99.1 F 94 20 96/60 91 - Lungs Lungs: Clear Ascult./Percussion - Airway Airway: Non-obstructed - Cardiovascular Regular Rate - Mental Status Mental Status: Alert & Oriented, Answers Appropriately - Pain Pain Scale: 3 Pain Scale used: Numeric (1 - 10) - Nausea Vomiting Nausea Vomiting: Not Present - Hydration Hydration: Ice chips, Has not voided - Discharge PostOp Status: Transfer Patient to floor Anes Supervising Prov Stmt: PT seen/evaluated, VSS and pt has met criteria for discharge to floor. - MD Prasanth
[2017-01-16] MEDS: Albuterol 2.5 MG/3 ML NEBULIZER IH PRN ×2 (16:10→21:56)
[2017-01-16] MEDS ORDERED: *HR* Rivaroxaban 10 MG TABLET PO SCH (17:00)
[2017-01-16] MEDS: Insulin LISPRO 300 UNITS/3 ML VIAL SQ SCH (17:15)
[2017-01-16] MEDS: ceFAZolin 2,000 MG in D5% in Water 100 ML IVPB SCH (18:30)
[2017-01-16] MEDS: LOXAPINE SUCCINATE 10 MG PO SCH (19:55)
[2017-01-16] MEDS ORDERED: Melatonin 3 MG TABLET PO SCH (21:00)
[2017-01-16] MEDS ORDERED: Mirtazapine 15 MG TABLET PO SCH (21:00)
[2017-01-16] MEDS ORDERED: Nystatin Cream 15 GM TUBE TP PRN (21:00)
[2017-01-17] MEDS: ceFAZolin 2,000 MG in D5% in Water 100 ML IVPB SCH (01:04)
[2017-01-17] MEDS: Albuterol 2.5 MG/3 ML NEBULIZER IH PRN (03:40)
[2017-01-17 04:39] LABS: Basophils % 0.1 %; Hematocrit 46.1 % (35.3-44.9); Immature Granulocytes % 0.4 % (0-4); Lymphocytes # 0.8 K/mcL (0.6-4.6); Lymphocytes % 6.2 %; Mean Corpuscular HGB Conc 31.9 g/dL (31.6-35.5); Mean Corpuscular Hemoglobin 30.9 pg (28.0-33.3); Mean Corpuscular Volume 97.1 fL (83.0-100.0); Mean Platelet Volume 9.3 fL (9.4-12.4); Monocytes # 0.5 K/mcL (0.0-1.3); Platelet Count 233 K/mcL (140-400); Red Blood Count 4.75 M/mcL (3.82-4.97); Red Cell Distribution Width 15.3 % (11.5-14.5); Segmented Neutrophils % 89.3 %
[2017-01-17 04:42] LABS: Hemoglobin 14.7 g/dL (11.5-15.4)
[2017-01-17 04:56] LABS: BUN/Creatinine Ratio 16 (6-26); Blood Urea Nitrogen 12 mg/dL (7-20); Calcium 8.4 mg/dL (8.6-10.8); Carbon Dioxide 28 mEq/L (19-29); Chloride 106 mEq/L (98-109); Glucose 124 mg/dL (70-99); Osmolality,Calculated 291 (280-300); Potassium 4.4 mEq/L (3.5-4.5); Sodium 140 mEq/L (136-145); eGFR For African Americans > 60 (> 60); eGFR For Non-African Americans > 60 (> 60)
[2017-01-17] MEDS: 0.9 % Sodium Chloride 1,000 ML IVC SCH (06:26)
[2017-01-17] MEDS: *HR* Metoprolol 5 MG/5 ML VIAL IVP SCH ×3 (06:27→06:46)
[2017-01-17] MEDS ORDERED: Tiotropium 18 MCG inhalation IH SCH (07:00)
[2017-01-17 07:17] VITALS: BP 101/62
[2017-01-17] MEDS: Insulin LISPRO 300 UNITS/3 ML VIAL SQ SCH (07:32)
--- NOTE | 2017-01-17 07:47 | Discharge Summary ---
Date of Encounter: 01/17/17 Time of Encounter: 07:40 - Discharge Diagnosis (1) Superficial femoral artery occlusion Priority: Primary Status: Acute Comments: The patient underwent successful treatment of superficial femoral artery occlusion - Discharge Medications Prescriptions: OxyCODONE/APAP 5/325 [Percocet 5/325 MG] 1 each PO Q4HR PRN #30 tablet PRN Reason: postoperative pain Nicotine Patch [Nicoderm] 21 mg TD DAILY #30 patch.td24 Rivaroxaban [Xarelto] 20 mg PO DAILY #30 tablet Home Medications: Albuterol Sulfate [Albuterol Inhaler] 2 puff IH QID #0 04/13/15 [History] Budesonide/Formoterol 160/4.5 [Symbicort] 2 puff IH BIDR 04/13/15 [History] Duloxetine HCl [Cymbalta] 60 mg PO QAM #0 04/13/15 [History] Simvastatin [Zocor] 20 mg PO HS #0 04/13/15 [History] metFORMIN [Glucophage] 500 mg PO BIDWM #0 04/13/15 [History] SUMAtriptan [Imitrex] 50 mg PO DAILY PRN 06/29/16 [History] Albuterol Neb [Proventil Neb] 2.5 mg IH Q6H PRN 01/15/17 [History] Buspirone HCl [Buspar] 15 mg PO BID 01/15/17 [History] CarBAMazepine XR [Tegretol Xr] 300 mg PO BID 01/15/17 [History] Docusate [Colace] 100 mg PO DAILY PRN 01/15/17 [History] Guaifenesin [Mucinex] 600 mg PO BID 01/15/17 [History] Lisinopril [Zestril] 10 mg PO DAILY 01/15/17 [History] Loxapine Succinate [Loxapine] 10 mg PO BID 01/15/17 [History] Melatonin 5 mg PO HS 01/15/17 [History] Mirtazapine [Remeron] 15 mg PO HS 01/15/17 [History] Nystatin Cream [Mycostatin Cream] 1 appl TP BID PRN 01/15/17 [History] Oxygen 2 l NS CONT 01/15/17 [History] Tiotropium [Spiriva] 18 mcg IH 0700 01/15/17 [History] Aspirin Enteric Coated [Aspirin EC] 81 mg PO DAILY tablet. 01/16/17 [Rx] Nicotine Patch [Nicoderm] 21 mg TD DAILY #30 patch.td24 01/16/17 [Rx] OxyCODONE/APAP 5/325 [Percocet 5/325 MG] 1 each PO Q4HR PRN #30 tablet 01/16/17 [Rx] Rivaroxaban [Xarelto] 20 mg PO DAILY #30 tablet 01/16/17 [Rx] Allergies/Adverse Reactions: Allergies divalproex sodium [From Depakote] Allergy (Verified 01/15/17 15:10) Unconscious hydrocodone Allergy (Verified 01/15/17 15:10) Itching orange Allergy (Verified 01/15/17 15:10) Swelling of Lip/Tongue/Throat Penicillins [PCN] Allergy (Verified 01/15/17 15:10) Rash venom-honey bee [bee venom (honey bee)] Allergy (Verified 01/15/17 15:10) Swelling of Lip/Tongue/Throat Date of admission: 01/15/17 21:37 Primary care physician: Pardeep Schaeffer DO Consults: 01/16/17 15:31 Consult to Corner Former [CONS] Routine Reason for SW Consult: Xarelto coverage Discharging clinician: Angel Jacob Anticipated date of discharge: 01/17/17 - Patient Status Disposition: Home, Self-Care Functional capacity at discharge: independent ambulation Overall status at discharge: patient is progressing back to baseline - Discharge Instructions Follow Up With: Pardeep Schaeffer DO [Primary Care Provider] - (sent web request for 5-7 day follow up on 01-16-17 @ 0841) Ronnie Stephens MD [Partnered Physician] - 02/02/17 8:30 am Helena Keenan DO [Resident] - 01/20/17 2:00 pm - Diet and Activity Activity: other (Protect the right foot with a sock and shoe during ambulation) Diet: advance to your usual diet - Hospital Course Hospital course: Ms. Lopez is a 51 year old female Time spent discussing smoking cessation with patient: 3 to 10 minutes - Time Spent with Patient Total time spent providing and/or coordinating discharge services: Less than 30 minutes Exam Vital Signs, Last 4 Hours Temp Pulse Resp BP Pulse Ox 01/17/17 07:14 98.2 F 66 16 101/62 100 01/17/17 04:06 82 01/17/17 04:03 97.6 F 68 20 113/61 97 General: Present: No Apparent Distress Cardiac: Present: Reg Rate and Rhythm, Normal S1 and S2, No Murmur Lungs: Present: Normal Breath Sounds, No Wheeze, Rales, Rhonchi Abdomen: Present: Soft, Non-tender Vascular: Present: Other (Right foot is warm and pink. The toes are discolored. She states that she has tingling in her toes) - VTE Reasons for not Prescribing Prophylaxis: Not indicated-Anticoagulated or INR therapeutic
[2017-01-17] MEDS: CarBAMazepine XR (12 hr) 100 MG TAB PO SCH (07:51)
[2017-01-17] MEDS: LOXAPINE SUCCINATE 10 MG PO SCH (07:52)
[2017-01-17] MEDS: Budesonide/Formoterol 160/4.5 MDI IH SCH (08:07)
[2017-01-17] MEDS ORDERED: Aspirin Enteric Coated 81 MG Tablet PO SCH (09:00)
[2017-01-17] MEDS ORDERED: *HR* Metformin 500 MG TABLET PO SCH (17:00)
[2017-01-17] MEDS ORDERED: ceFAZolin 2,000 MG in D5% in Water 100 ML IVPB SCH (18:00)
== END 2017-01-17 11:09 | disposition home or self-care (01) | DRG 181 ==
LOC: EMEROO 14:59 → 2ANU 14:59 → 2NNU 01-16 14:16
PROVIDERS: ADMIT Surgery; ATTEND Surgery

== ENCOUNTER 2019-04-17 20:42 | Observation (INO) ==
--- NOTE | 2019-04-17 21:23 | Emergency Department Note ---
Disposition Clinical Impression: Acute exacerbation of chronic obstructive airways disease, SIRS (systemic inflammatory response syndrome) Disposition: Admitted As Inpatient Condition: Fair Time of Disposition: 22:20 SOB HPI - General Chief Complaint: ED Shortness of Breath/Dyspnea Stated Complaint: eric/sob-unable to do sleep study Time Seen by Provider: 04/17/19 20:55 Source: patient Limitations: no limitations Nursing Notes Reviewed: Yes Vital Signs Reviewed: Yes - History of Present Illness 54-year-old female presents for evaluation of shortness of breath. She has a history of COPD. She smokes about one pack every 4-5 days. She states she smokes a little cigars. She was having a sleep study done today to evaluate her for her settings. Upon arrival she was tachycardic her should her rate was elevated and she did meet SIRS criteria Pt Subjective Complaint: shortness of breath, cough Onset (ago): day(s) (3) Context: medication noncompliance Severity: moderate Consistency/Duration: intermittent Improves with: rest, bronchodilators Worsens with: exertion, movement, coughing Known history of: COPD Associated symptoms: Reports: sputum production. Denies: chest pain, pain with inspiration, polydipsia, parasthesias Treatment prior to arrival: oxygen, bronchodilator Cough present: Yes Cough Description: Productive (At times) Cough Frequency: Intermittent - Related Data Home Medications Medication Instructions Recorded Confirmed Albuterol Sulfate [Proventil 2 puff IH QID #0 04/13/15 04/17/19 Inhaler] Budesonide/Formoterol 160/4.5 2 puff IH BIDR 04/13/15 04/17/19 [Symbicort] Duloxetine HCl [Cymbalta] 60 mg PO QAM #0 04/13/15 04/17/19 Simvastatin [Zocor] 20 mg PO HS #0 04/13/15 04/17/19 SUMAtriptan succinate [Imitrex] 50 mg PO DAILY PRN 06/29/16 04/17/19 Albuterol Neb [Proventil Neb] 2.5 mg IH Q6H PRN 01/15/17 04/17/19 Buspirone HCl [Buspar] 15 mg PO BID 01/15/17 04/17/19 CarBAMazepine XR [Tegretol Xr] 300 mg PO BID 01/15/17 04/17/19 Docusate [Colace] 100 mg PO DAILY PRN 01/15/17 04/17/19 Guaifenesin [Mucinex] 600 mg PO BID 01/15/17 04/17/19 Lisinopril [Zestril] 10 mg PO DAILY 01/15/17 04/17/19 Loxapine Succinate [Loxapine] 10 mg PO BID 01/15/17 04/17/19 Melatonin 10 mg PO HS 01/15/17 04/17/19 Mirtazapine [Remeron] 15 mg PO HS 01/15/17 04/17/19 Nystatin Cream [Mycostatin Cream] 1 appl TP BID PRN 01/15/17 04/17/19 Oxygen 2 l NS CONT 01/15/17 04/17/19 Tiotropium [Spiriva] 18 mcg IH 0700 01/15/17 04/17/19 Lurasidone HCl [Latuda] 60 mg PO DAILY 04/17/19 04/17/19 raNITIdine HCl DAILY 04/18/19 Previous Rx's Medication Instructions Recorded Aspirin Enteric Coated [Aspirin EC] 81 mg PO DAILY tablet. 01/16/17 Nicotine Patch [Nicoderm] 21 mg TD DAILY #30 patch.td24 01/16/17 Rivaroxaban [Xarelto] 20 mg PO DAILY #30 tablet 01/16/17 Allergies Allergy/AdvReac Type Severity Reaction Status Date / Time divalproex sodium Allergy Unconscious Verified 01/15/17 15:10 [From Depakote] hydrocodone Allergy Itching Verified 01/15/17 15:10 orange Allergy Swelling Verified 01/15/17 15:10 of Lip/Tongue/Throat Penicillins [PCN] Allergy Rash Verified 01/15/17 15:10 venom-honey bee Allergy Swelling Verified 01/15/17 15:10 [bee venom (honey bee)] of Lip/Tongue/Throat All systems ED: reviewed and negative except as stated. Constitutional: Denies: fever, chills, weakness, weight change Eyes: Denies: eye pain, eye discharge, vision change ENT ED: Denies: ear pain, throat pain, dental pain, hearing loss, epistaxis, congestion, dysphagia Cardiovascular: Denies: chest pain, palpitations, dyspnea on exertion, edema, syncope Respiratory: Reports: cough, dyspnea, wheezes. Denies: hemoptysis, stridor Gastrointestinal: Denies: abdominal pain, nausea, vomiting, diarrhea, constipation, hematemesis, melena, hematochezia Genitourinary: Denies: dysuria, frequency, hematuria, discharge Musculoskeletal: Denies: back pain, neck pain, arthralgia, myalgia Integumentary: Denies: rash, abrasion, lesions Neurological: Denies: headache, weakness, numbness, paresthesias, confusion, abnormal gait, vertigo Psychiatric: Denies: anxiety, depression, suicidal thoughts, homicidal thoughts, auditory hallucinations, visual hallucinations Endocrine: Denies: fatigue Past Medical History - Past Medical History Attestation: Yes The following information was validated with the patient. Source: patient, old records reviewed, nursing notes reviewed Medical history: Reports: asthma, cancer, COPD, CVA, diabetes, hyperlipidemia, hypertension, seizures, other Surgical history: Reports: , cancer surgery Psychiatric history: Reports: anxiety, bipolar, depression, panic disorder, prior suicide attempt, schizophrenia, previous psychiatric hospitalization [facility] history: Reports: other - Social History Smoking Status: Current every day smoker Smokeless Tobacco Status: Yes (patches) Alcohol use: Reports: none Drug use: Reports: marijuana Physical Exam - General Limitations: no limitations General appearance: alert, in no apparent distress - Head Head exam: atraumatic, normocephalic, normal inspection - Eye Eye exam: Present: normal appearance, PERRL, EOMI - ENT ENT exam: normal exam, normal oropharynx, mucous membranes moist - Neck Neck exam: Present: normal inspection, full ROM, trachea midline - Chest Chest inspection: Present: normal inspection, symmetric chest wall rise - Respiratory Respiratory exam: Present: normal lung sounds bilaterally, respiratory distress, wheezes - Cardiovascular Cardiovascular exam: Present: tachycardia, normal heart sounds - Abdominal Exam Abdominal exam: Present: soft, Non-Tender, normal bowel sounds. Absent: tenderness, distention, guarding, rebound, rigidity - Extremities Exam Extremities exam: Present: normal inspection, full ROM. Absent: tenderness, pedal edema - Back Exam Back exam: Present: normal inspection, full ROM. Absent: tenderness - Neurological Exam Neurological exam: Present: alert, oriented X3, CN II-XII intact - Psychiatric Psychiatric exam: Present: normal affect, normal mood Course Course Narrative: Patient was placed in examination room. Patient was given a nebulized treatm ent. She had blood cultures. She will answers criteria. Rocephin 2 g IV push was initiated. That was admitted recently. Her heart rate averaged for rate improved tremendously after she was placed in bed for 2-3 minutes. She was afebrile. She reported a fever at home 2 days ago. Chest x-ray did not show any acute infiltrate. Patient is improved. I decided with Dr. Hillman who agreed with observation. Vital Signs Temperature 97.9 F 04/17/19 21:00 Pulse Rate 104 04/17/19 21:00 Respiratory Rate 31 04/17/19 21:00 Blood Pressure 99/68 04/17/19 21:00 O2 Sat by Pulse Oximetry 97 04/17/19 21:00 Temperature 98.2 F 04/18/19 04:08 Pulse Rate 100 04/18/19 04:08 Respiratory Rate 18 04/18/19 04:08 Blood Pressure 141/72 04/18/19 04:08 O2 Sat by Pulse Oximetry 94 04/18/19 04:08 Oxygen Delivery Oxygen Delivery Nasal Cannula Shortness of Breath/Dyspnea - [facility] Narrative Medical decision making narrative: Normal saline fluid bolus was administered based on ideal body weight of 46 kg and adjusted body weight is 64 kg. - Medical Records Medical records reviewed: Yes I reviewed the patient's medical records. - Lab Data Lab results reviewed: Yes I reviewed the patient's lab results. Result diagrams: 04/17/19 21:19 04/17/19 21:19 Lab Results 04/17/19 04/17/19 04/17/19 Range/Units 21:19 21:19 21:19 WBC 15.0 H (4.3-11.1) K/mcL RBC 5.15 H (3.82-4.97) M/mcL Hgb 15.3 (11.5-15.4) g/dL Hct 48.4 H (35.3-44.9) % MCV 94.0 (83.0-100.0) fL MCH 29.7 (28.0-33.3) pg MCHC 31.6 (31.6-35.5) g/dL RDW 14.0 (11.5-14.5) % Plt Count 393 (140-400) K/mcL MPV 9.3 L (9.4-12.4) fL Immature Gran % 0.4 (0-4) % Seg Neutrophils % 78.2 % Lymphocytes % 13.4 % Monocytes % 6.2 % Eosinophils % 1.1 % Basophils % 0.7 % Neutrophils # 11.7 H (1.6-8.9) K/mcL Lymphocytes # 2.0 (0.6-4.6) K/mcL Monocytes # 0.9 (0.0-1.3) K/mcL Eosinophils # 0.2 (0.0-0.6) K/mcL Basophils # 0.1 (0.0-0.2) K/mcL PT 12.0 (9.4-12.1) Seconds INR 1.1 APTT 34.3 (26.0-36.0) Seconds Sample Site ABG pH (7.32-7.45) pH Units ABG pCO2 (35-45) mmHg ABG pO2 (85-104) mmHg ABG HCO3 (21-27) mEq/L ABG Total CO2 (20-26) mEq/L ABG O2 Saturation (95-98) % ABG Base Excess (-2 to 3) mEq/L Doc Test O2 Delivery Device Inspired O2 (1-15=lpm [id number]=%) Sodium 141 (136-145) mEq/L Potassium 4.0 (3.5-5.1) mEq/L Chloride 103 (98-107) mEq/L Carbon Dioxide 29 (23-29) mEq/L BUN 14 (6-20) mg/dL Creatinine 0.69 (0.60-1.20) mg/dL Est GFR ( Amer) > 60 (> 60) Est GFR (Non-Af Amer) > 60 (> 60) BUN/Creatinine Ratio 20 (6-26) Glucose 97 (70-105) mg/dL Calculated Osmolality 292 (280-300) Lactic Acid (0.5-2.2) mmol/L Calcium 9.4 (8.6-10.3) mg/dL Phosphorus 2.3 L (2.7-4.5) mg/dL Magnesium 2.1 (1.6-2.6) mg/dL Total Bilirubin 0.3 (0.3-1.0) mg/dL Direct Bilirubin 0.1 (0.0-0.2) mg/dL Indirect Bilirubin 0.2 (0.0-1.2) mg/dL AST 13 (13-39) Units/L ALT 12 (7-52) Units/L Alkaline Phosphatase 89 (34-104) Units/L Troponin I < 0.03 (< 0.04) ng/mL B-Natriuretic Peptide (Less than 100) pg/mL Serum Total Protein 7.5 (6.4-8.9) g/dL Albumin 4.3 (3.5-5.7) g/dL Globulin 3.2 (2.4-3.5) g/dL Albumin/Globulin Ratio 1.3 (1.1-2.2) Urine Color (Yellow) Urine Clarity (Clear) Urine pH (5.0-8.0) pH Units Ur Specific Hermann (1.010-1.025) Urine Protein (Neg-Trace) mg/dL Urine Glucose (UA) (Normal) mg/dL Urine Ketones (Negative) mg/dL Urine Blood (Negative) Urine Nitrite (Negative) Urine Bilirubin (Negative) Urine Urobilinogen (Normal) mg/dL Ur Leukocyte Esterase (Negative) Urine Microscopic RBC (0-3) per hpf Urine Microscopic WBC (0-3) per hpf Ur Squamous Epith Cells (None-Few) per lpf Urine Bacteria (None-Few) per hpf Hyaline Casts (None-Few) per lpf Ur Culture Indicated? (NO) 04/17/19 04/17/19 04/17/19 Range/Units 21:19 21:19 21:47 WBC (4.3-11.1) K/mcL RBC (3.82-4.97) M/mcL Hgb (11.5-15.4) g/dL Hct (35.3-44.9) % MCV (83.0-100.0) fL MCH (28.0-33.3) pg MCHC (31.6-35.5) g/dL RDW (11.5-14.5) % Plt Count (140-400) K/mcL MPV (9.4-12.4) fL Immature Gran % (0-4) % Seg Neutrophils % % Lymphocytes % % Monocytes % % Eosinophils % % Basophils % % Neutrophils # (1.6-8.9) K/mcL Lymphocytes # (0.6-4.6) K/mcL Monocytes # (0.0-1.3) K/mcL Eosinophils # (0.0-0.6) K/mcL Basophils # (0.0-0.2) K/mcL PT (9.4-12.1) Seconds INR APTT (26.0-36.0) Seconds Sample Site ABG pH (7.32-7.45) pH Units ABG pCO2 (35-45) mmHg ABG pO2 (85-104) mmHg ABG HCO3 (21-27) mEq/L ABG Total CO2 (20-26) mEq/L ABG O2 Saturation (95-98) % ABG Base Excess (-2 to 3) mEq/L Doc Test O2 Delivery Device Inspired O2 (1-15=lpm [id number]=%) Sodium (136-145) mEq/L Potassium (3.5-5.1) mEq/L Chloride (98-107) mEq/L Carbon Dioxide (23-29) mEq/L BUN (6-20) mg/dL Creatinine (0.60-1.20) mg/dL Est GFR ( Amer) (> 60) Est GFR (Non-Af Amer) (> 60) BUN/Creatinine Ratio (6-26) Glucose (70-105) mg/dL Calculated Osmolality (280-300) Lactic Acid 0.9 (0.5-2.2) mmol/L Calcium (8.6-10.3) mg/dL Phosphorus (2.7-4.5) mg/dL Magnesium (1.6-2.6) mg/dL Total Bilirubin (0.3-1.0) mg/dL Direct Bilirubin (0.0-0.2) mg/dL Indirect Bilirubin (0.0-1.2) mg/dL AST (13-39) Units/L ALT (7-52) Units/L Alkaline Phosphatase (34-104) Units/L Troponin I (< 0.04) ng/mL B-Natriuretic Peptide 23 (Less than 100) pg/mL Serum Total Protein (6.4-8.9) g/dL Albumin (3.5-5.7) g/dL Globulin (2.4-3.5) g/dL Albumin/Globulin Ratio (1.1-2.2) Urine Color Yellow (Yellow) Urine Clarity Clear (Clear) Urine pH 5.5 (5.0-8.0) pH Units Ur Specific Hermann 1.027 H (1.010-1.025) Urine Protein Negative (Neg-Trace) mg/dL Urine Glucose (UA) Normal (Normal) mg/dL Urine Ketones Trace H (Negative) mg/dL Urine Blood Negative (Negative) Urine Nitrite Negative (Negative) Urine Bilirubin Small H (Negative) Urine Urobilinogen Normal (Normal) mg/dL Ur Leukocyte Esterase Small H (Negative) Urine Microscopic RBC 5-15 H (0-3) per hpf Urine Microscopic WBC 0-3 (0-3) per hpf Ur Squamous Epith Cells Many H (None-Few) per lpf Urine Bacteria None Seen (None-Few) per hpf Hyaline Casts None Seen (None-Few) per lpf Ur Culture Indicated? YES A (NO) 04/17/19 Range/Units 21:59 WBC (4.3-11.1) K/mcL RBC (3.82-4.97) M/mcL Hgb (11.5-15.4) g/dL Hct (35.3-44.9) % MCV (83.0-100.0) fL MCH (28.0-33.3) pg MCHC (31.6-35.5) g/dL RDW (11.5-14.5) % Plt Count (140-400) K/mcL MPV (9.4-12.4) fL Immature Gran % (0-4) % Seg Neutrophils % % Lymphocytes % % Monocytes % % Eosinophils % % Basophils % % Neutrophils # (1.6-8.9) K/mcL Lymphocytes # (0.6-4.6) K/mcL Monocytes # (0.0-1.3) K/mcL Eosinophils # (0.0-0.6) K/mcL Basophils # (0.0-0.2) K/mcL PT (9.4-12.1) Seconds INR APTT (26.0-36.0) Seconds Sample Site L Radial ABG pH 7.38 (7.32-7.45) pH Units ABG pCO2 58 H (35-45) mmHg ABG pO2 80 L (85-104) mmHg ABG HCO3 34 H (21-27) mEq/L ABG Total CO2 36 H (20-26) mEq/L ABG O2 Saturation 95 (95-98) % ABG Base Excess 7 H (-2 to 3) mEq/L Doc Test Positive O2 Delivery Device Cannula Inspired O2 3.0 (1-15=lpm [id number]=%) Sodium (136-145) mEq/L Potassium (3.5-5.1) mEq/L Chloride (98-107) mEq/L Carbon Dioxide (23-29) mEq/L BUN (6-20) mg/dL Creatinine (0.60-1.20) mg/dL Est GFR ( Amer) (> 60) Est GFR (Non-Af Amer) (> 60) BUN/Creatinine Ratio (6-26) Glucose (70-105) mg/dL Calculated Osmolality (280-300) Lactic Acid (0.5-2.2) mmol/L Calcium (8.6-10.3) mg/dL Phosphorus (2.7-4.5) mg/dL Magnesium (1.6-2.6) mg/dL Total Bilirubin (0.3-1.0) mg/dL Direct Bilirubin (0.0-0.2) mg/dL Indirect Bilirubin (0.0-1.2) mg/dL AST (13-39) Units/L ALT (7-52) Units/L Alkaline Phosphatase (34-104) Units/L Troponin I (< 0.04) ng/mL B-Natriuretic Peptide (Less than 100) pg/mL Serum Total Protein (6.4-8.9) g/dL Albumin (3.5-5.7) g/dL Globulin (2.4-3.5) g/dL Albumin/Globulin Ratio (1.1-2.2) Urine Color (Yellow) Urine Clarity (Clear) Urine pH (5.0-8.0) pH Units Ur Specific Hermann (1.010-1.025) Urine Protein (Neg-Trace) mg/dL Urine Glucose (UA) (Normal) mg/dL Urine Ketones (Negative) mg/dL Urine Blood (Negative) Urine Nitrite (Negative) Urine Bilirubin (Negative) Urine Urobilinogen (Normal) mg/dL Ur Leukocyte Esterase (Negative) Urine Microscopic RBC (0-3) per hpf Urine Microscopic WBC (0-3) per hpf Ur Squamous Epith Cells (None-Few) per lpf Urine Bacteria (None-Few) per hpf Hyaline Casts (None-Few) per lpf Ur Culture Indicated? (NO) - Radiology Data Radiology results reviewed: Yes I reviewed the patient's radiology results. EXAMINATION: ONE XRAY VIEW OF THE CHEST 04/17/2019 9:55 pm COMPARISON: 11/08/2018 HISTORY: ORDERING SYSTEM PROVIDED HISTORY: pneumonia SIRS FINDINGS: The lungs are without acute focal process. There is no effusion or pneumothorax. The cardiomediastinal silhouette is stable. The osseous structures are stable. XR/XR chest 1V portable IMPRESSION: No acute process. D/ / Crow Dickinson MD / Crow Dickinson MD Interpreting Provider: Crow Dickinson MD - EKG Data EKG attestation: Yes I reviewed and interpreted this EKG. EKG results narrative: EKG shows sinus tachycardia 108., Normal CA interval, interventricular conduction delay, left axis. No acute ST elevations Critical Care Time Critical Care Time: Yes Total Critical Care Time: 30 Attestation: The high probability of a clinically significant, sudden or life threatening deterioration of the patient's condition required my full and direct attention, intervention and personal management.
[2019-04-17] MEDS ORDERED: cefTRIAXone 2,000 MG in 0.9 % Sodium Chloride Mini Bag 100 ML IVPB ONE (21:26)
[2019-04-17] MEDS ORDERED: Ipratropium/Albuterol Neb 3 ML IH ONE (21:26)
[2019-04-17] MEDS ORDERED: cefTRIAXone 2,000 MG in Water for inj. (sterile) 20 ML IVP ONE (21:35)
[2019-04-17 21:50] LABS: Basophils # 0.1 K/mcL (0.0-0.2); Basophils % 0.7 %; Eosinophils # 0.2 K/mcL (0.0-0.6); Eosinophils % 1.1 %; Hematocrit 48.4 % (35.3-44.9); Hemoglobin 15.3 g/dL (11.5-15.4); Immature Granulocytes % 0.4 % (0-4); Lymphocytes % 13.4 %; Mean Corpuscular HGB Conc 31.6 g/dL (31.6-35.5); Mean Corpuscular Hemoglobin 29.7 pg (28.0-33.3); Mean Platelet Volume 9.3 fL (9.4-12.4); Monocytes # 0.9 K/mcL (0.0-1.3); Monocytes % 6.2 %; Neutrophils # 11.7 K/mcL (1.6-8.9); Platelet Count 393 K/mcL (140-400); Red Blood Count 5.15 M/mcL (3.82-4.97); Segmented Neutrophils % 78.2 %
[2019-04-17 21:59] LABS: INR 1.1
[2019-04-17] MEDS: 0.9 % Sodium Chloride 1,000 ML IVC SCH (22:01)
[2019-04-17 22:02] LABS: Bilirubin,Urine Small (Negative); Blood,Urine Negative (Negative); Clarity,Urine Clear (Clear); Color,Urine Yellow (Yellow); Glucose,Urine (UA) Normal (Normal); Ketones,Urine Trace mg/dL (Negative); Leukocyte Esterase,Urine Small (Negative); Nitrite,Urine Negative (Negative); PH,Urine 5.5 pH Units (5.0-8.0); Protein,Urine Negative (Neg-Trace); Specific Gravity,Urine 1.027 (1.010-1.025); Urobilinogen,Urine Normal (Normal)
[2019-04-17 22:02] LABS: Activated Partial Thrombo Time 34.3 Seconds (26.0-36.0)
[2019-04-17 22:05] LABS: ABG Base Excess 7 mEq/L (-2 to 3); ABG HCO3 34 mEq/L (21-27); ABG Oxygen Saturation 95 % (95-98); ABG PCO2 58 mmHg (35-45); ABG PH 7.38 pH Units (7.32-7.45); ABG PO2 80 mmHg (85-104); ABG TCO2 36 mEq/L (20-26)
[2019-04-17 22:05] LABS: Bacteria,Urine None Seen per hpf (None-Few); Hyaline Casts,Urine None Seen per lpf (None-Few); Squamous Epithelial Cell,Urine Many per lpf (None-Few); WBC,Urine 0-3 per hpf (0-3)
[2019-04-17 22:16] LABS: Alanine Aminotransferase 12 Units/L (7-52); Albumin 4.3 g/dL (3.5-5.7); Albumin/Globulin Ratio 1.3 (1.1-2.2); Alkaline Phosphatase 89 Units/L (34-104); Aspartate Amino Transferase 13 Units/L (13-39); BUN/Creatinine Ratio 20 (6-26); Bilirubin,Direct 0.1 mg/dL (0.0-0.2); Bilirubin,Indirect 0.2 mg/dL (0.0-1.2); Bilirubin,Total 0.3 mg/dL (0.3-1.0); Blood Urea Nitrogen 14 mg/dL (6-20); Calcium 9.4 mg/dL (8.6-10.3); Carbon Dioxide 29 mEq/L (23-29); Chloride 103 mEq/L (98-107); Globulin 3.2 g/dL (2.4-3.5); Glucose 97 mg/dL (70-105); Magnesium 2.1 mg/dL (1.6-2.6); Osmolality,Calculated 292 (280-300); Phosphorous 2.3 mg/dL (2.7-4.5); Sodium 141 mEq/L (136-145); Total Protein 7.5 g/dL (6.4-8.9); Troponin I < 0.03 ng/mL (< 0.04); eGFR For African Americans > 60 (> 60); eGFR For Non-African Americans > 60 (> 60)
[2019-04-17] MEDS ORDERED: methylPREDNISolone 125 MG/2 ML VIAL IVP ONE (23:36)
[2019-04-18] MEDS: 0.9 % Sodium Chloride 1,000 ML IVC SCH (00:04)
[2019-04-18] MEDS: SUMAtriptan succinate 50 MG TABLET PO PRN ×2 (04:51→20:34)
[2019-04-18] MEDS ORDERED: Acetaminophen 325 MG TABLET PO PRN (05:24)
[2019-04-18] MEDS ORDERED: Albuterol 2.5 MG/3 ML NEBULIZER IH PRN (05:24)
[2019-04-18] MEDS ORDERED: Naloxone 0.4 MG/ML INJ IVP PRN (05:24)
[2019-04-18] MEDS ORDERED: Nystatin Cream 15 GM TUBE TP PRN (05:27)
[2019-04-18] MEDS ORDERED: 0.9 % Sodium Chloride 1,000 ML IVC SCH (05:30)
--- NOTE | 2019-04-18 06:06 | Internal Med History&Physical ---
Date of Encounter: 04/18/19 Time of Encounter: 05:05 Internal Medicine - H&P: HPI Chief complaint: SOB, cough, wheeze Admitted From: Emergency Dept Plans for Post Hospital Care: Home History of present illness: Ms. Lopez is a 54 year old female who presents with 5 day history of cough, wheezing, shortness of breath, subjective fevers, chills, and worsening hypoxemia. She was in the sleep lab earlier tonight for CPAP titration study. However, this test was canceled due to patient's dyspnea, coughing, and wheezing. She was sent to ER for evaluation where she was admitted to hospitalist service. Patient has been noncompliant with her CPAP mask for the last several years. She was due to have titration study to adjust her CPAP to the point where she can wear it and use it as directed. However, study was canc eled due to her symptoms. She has ahistory of COPD and is oxygen dependent at home. She denies any recent ill contacts. However, her COPD has been flaring up recently. She is a smoker and continues to smoke. Past Med Surg Social Fam HX - Past Medical History Attestation: Yes The following information was validated with the patient. Source: patient, old records reviewed Medical history: asthma, cancer, CHF, COPD, CVA, hyperlipidemia, hypertension, seizures, other Additional medical history: ovarian cancer, benign polyps on the colon, alcoholism, polycythemia vera, multipersonality disorder Psychiatric history: anxiety, bipolar, depression, panic disorder, prior suicide attempt, schizophrenia, previous psychiatric hospitalization - Past Surgical History Surgical History: Additional surgical history: Right groin surgery 01/14/17 "blood clots removed in the right foot r/t blood disorder," L ovary removed, L foot surgery and 5 extra bones removed from left big toe, "Head surgery," colonoscopy - Social History Smoking Status: Current every day smoker Packs per day: 2.5 Smokeless Tobacco Status: No Alcohol use: none Drug use: marijuana Current living situation: Home, With Family Activity Level: Independent ambulation Recent Out of Country Travel Within the Last 8 Weeks: No - Family History Father Family Member Ethnicity: Non- Living Status: Hx Family Cardiac Disorders: Yes (CAD,) Hx Family Respiratory Disorders: Yes (COPD) Hx Family Cancer: Yes (Colon metastasis) Hx Family GI Disorders: Yes Hx Family Endocrine Disorder: Yes Hx Family Neuromuscular Disorders: No Hx Family Neurologic Disorders: No Hx Family HEENT Disorders: No Hx Family Autoimmune Disorders: No Mother History Unknown: Yes Living Status: Hx Family Cancer: Yes Internal Medicine - H&P: Meds Albuterol Sulfate [Proventil Inhaler] 2 puff IH QID #0 04/13/15 [History] Budesonide/Formoterol 160/4.5 [Symbicort] 2 puff IH BIDR 04/13/15 [History] Duloxetine HCl [Cymbalta] 60 mg PO QAM #0 04/13/15 [History] Simvastatin [Zocor] 20 mg PO HS #0 04/13/15 [History] SUMAtriptan succinate [Imitrex] 50 mg PO DAILY PRN 06/29/16 [History] Albuterol Neb [Proventil Neb] 2.5 mg IH Q6H PRN 01/15/17 [History] Buspirone HCl [Buspar] 15 mg PO BID 01/15/17 [History] CarBAMazepine XR [Tegretol Xr] 300 mg PO BID 01/15/17 [History] Docusate [Colace] 100 mg PO DAILY PRN 01/15/17 [History] Guaifenesin [Mucinex] 600 mg PO BID 01/15/17 [History] Lisinopril [Zestril] 10 mg PO DAILY 01/15/17 [History] Loxapine Succinate [Loxapine] 10 mg PO BID 01/15/17 [History] Melatonin 10 mg PO HS 01/15/17 [History] Mirtazapine [Remeron] 15 mg PO HS 01/15/17 [History] Nystatin Cream [Mycostatin Cream] 1 appl TP BID PRN 01/15/17 [History] Oxygen 2 l NS CONT 01/15/17 [History] Tiotropium [Spiriva] 18 mcg IH 0700 01/15/17 [History] Aspirin Enteric Coated [Aspirin EC] 81 mg PO DAILY tablet. 01/16/17 [Rx] Nicotine Patch [Nicoderm] 21 mg TD DAILY #30 patch.td24 01/16/17 [Rx] Rivaroxaban [Xarelto] 20 mg PO DAILY #30 tablet 01/16/17 [Rx] Lurasidone HCl [Latuda] 60 mg PO DAILY 04/17/19 [History] raNITIdine HCl DAILY 04/18/19 [History] Allergy/AdvReac Type Severity Reaction Status Date / Time divalproex sodium Allergy Unconscious Verified 01/15/17 15:10 [From Depakote] hydrocodone Allergy Itching Verified 01/15/17 15:10 orange Allergy Swelling Verified 01/15/17 15:10 of Lip/Tongue/Throat Penicillins [PCN] Allergy Rash Verified 01/15/17 15:10 venom-honey bee Allergy Swelling Verified 01/15/17 15:10 [bee venom (honey bee)] of Lip/Tongue/Throat - Constitutional Constitutional: fatigue, fever(s), no chills, no night sweats - EENT Eyes: no blurry vision, no change in vision Ears: no ear pain, no tinnitus Nose, mouth and throat: no nasal congestion, no sinus pressure, no sore throat - Cardiovascular Cardiovascular ROS IM: dyspnea, dyspnea on exertion, no chest pain, no orthopnea , no paroxysmal nocturnal dyspnea - Respiratory Respiratory: cough, dyspnea, dyspnea on exertion, wheezing, chest congestion, excessive phlegm production, change in phlegm color, no hemoptysis - Gastrointestinal Gastrointestinal: nausea, no abdominal pain, no diarrhea, no hematemesis, no hematochezia, no melena, no vomiting - Genitourinary Genitourinary: no dysuria, no flank pain, no hematuria - Musculoskeletal Musculoskeletal ROS IM: no arthralgias, no back pain - Integumentary Integumentary IM: no rash, no jaundice - Neurological Neurological ROS: no dizziness, no focal weakness, no frequent falls, no headache(s) - Psychiatric Psychiatric: no anxiety, no depression - Endocrine Endocrine IM: no polydipsia, no polyphagia, no polyuria - Allergic/Immunologic Allergic/Immunologic: no wheezing - Constitutional Vitals: Temp Pulse Resp BP Pulse Ox 98.2 F 100 18 141/72 94 04/18/19 04:08 04/18/19 04:08 04/18/19 04:08 04/18/19 04:08 04/18/19 04:08 General appearance: Present: cooperative, mild distress, A&O X 3, answers questions appropriately. Absent: no acute distress Exam: see below - Head Head exam: Present: atraumatic, normal inspection - Eye Eye exam: Present: EOMI, PERRL. Absent: scleral icterus Pupils: Present: normal accommodation - ENT ENT exam: Present: mucous membranes dry, normal exam, normal oropharynx - Neck Neck exam general surgery: Present: full ROM, supple, trachea midline. Absent: tenderness, nuchal rigidity, thyromegaly - Respiratory Respiratory exam: Present: prolonged expiratory phase, respiratory distress (mild), rhonchi, wheezes, tachypnea. Absent: chest wall tenderness, CTAB, rales - Cardiovascular Cardiovascular exam: Present: distant heart sounds, RRR, +S1, +S2. Absent: diastolic murmur, systolic murmur - GI/Abdominal GI/Abdominal exam: Present: normal bowel sounds, soft. Absent: guarding, hepatomegaly, mass, rebound, splenomegaly, tenderness - Extremities Exam Extremities exam: Present: normal capillary refill, warm, radial pulses palpable and symmetrical. Absent: calf tenderness, joint swelling, pedal edema, tenderness - Back Exam Back exam: Present: normal inspection. Absent: CVA tenderness (L), CVA tenderness (R) - Neurological Exam Neurological exam: Present: alert, CN II-XII intact, oriented X3, no focal deficits, strengths equal and symetr throughout. Absent: motor sensory deficit - Psychiatric Psychiatric exam: Present: normal affect, normal mood - Skin Skin exam: Present: dry, intact, warm Internal Med - H&P Results - Labs CBC & Chem 7: 04/17/19 21:19 04/17/19 21:19 Labs: Short CBC 04/17/19 Range/Units 21:19 WBC 15.0 H (4.3-11.1) K/mcL Hgb 15.3 (11.5-15.4) g/dL Hct 48.4 H (35.3-44.9) % Plt Count 393 (140-400) K/mcL Neutrophils # 11.7 H (1.6-8.9) K/mcL BMP 04/17/19 21:19 Sodium 141 Potassium 4.0 Chloride 103 Carbon Dioxide 29 BUN 14 Creatinine 0.69 Glucose 97 Calcium 9.4 Cardiac Enzymes 04/17/19 Range/Units 21:19 Troponin I < 0.03 (< 0.04) ng/mL Liver Function 04/17/19 Range/Units 21:19 Total Bilirubin 0.3 (0.3-1.0) mg/dL Direct Bilirubin 0.1 (0.0-0.2) mg/dL AST 13 (13-39) Units/L ALT 12 (7-52) Units/L Alkaline Phosphatase 89 (34-104) Units/L Albumin 4.3 (3.5-5.7) g/dL Urine 04/17/19 Range/Units 21:47 Urine Color Yellow (Yellow) Urine Clarity Clear (Clear) Urine pH 5.5 (5.0-8.0) pH Units Ur Specific [place] 1.027 H (1.010-1.025) Urine Protein Negative (Neg-Trace) mg/dL Urine Glucose (UA) Normal (Normal) mg/dL - ABG Interpretation ABG results: 04/17/19 21:59 ABG pH 7.38 ABG pCO2 58 H ABG pO2 80 L ABG HCO3 34 H ABG Total CO2 36 H ABG O2 Saturation 95 ABG Base Excess 7 H - Impressions ITS Impressions Chest X-Ray 04/17/19 21:27 IMPRESSION: No acute process. D/ / Crow Dickinson MD / Crow Dickinson MD Interpreting Provider: Crow Dickinson MD - Diagnostic Studies Chest x-ray Status: image reviewed by me (negative) - Assessment and Plan (1) COPD exacerbation Current Visit: Yes Status: Acute Assessment and plan: 1. Will treat with steroids, aerosols, and antibiotics. 2. Oxygen as needed for support. 3. Monitor clinically and consider more aggressive ventilatory manuevers if necessary. (2) Polycythemia Current Visit: Yes Status: Chronic Assessment and plan: 1. Likely exacerbated by COPD. 2. Patient has scheduled phlebotomy every 2 months. 3. Monitor blood counts while she is hospitalized. (3) Essential hypertension Current Visit: Yes Status: Chronic Assessment and plan: 1. Will order basal BP medication. 2. Monitor BP and adjust medication dosing accordingly. (4) DVT prophylaxis Current Visit: Yes Status: Acute Assessment and plan: 1. Continue home dosing of Xarelto.
[2019-04-18] MEDS: Ipratropium/Albuterol Neb 3 ML IH SCH ×4 (07:47→19:48)
[2019-04-18] MEDS: Budesonide/Formoterol 160/4.5 1 PUFF INH IH SCH ×2 (07:48→19:49)
[2019-04-18] MEDS: levoFLOXacin 750 MG/150 ML 750 MG/150 ML BAG IVPB SCH (07:58)
[2019-04-18] MEDS: *HR* Rivaroxaban 10 MG TABLET PO SCH (07:59)
[2019-04-18] MEDS: Lurasidone 20 MG TABLET PO SCH (07:59)
[2019-04-18] MEDS ORDERED: methylPREDNISolone 125 MG/2 ML VIAL IVP SCH (08:00)
[2019-04-18] MEDS: Aspirin Enteric Coated 81 MG Tablet PO SCH (08:00)
[2019-04-18] MEDS: Nicotine 21 MG PATCH.TD24 TD SCH (08:01)
--- NOTE | 2019-04-18 08:59 | Electrocardiograph Report ---
[address] [place], [place] [address] Test Date: 2019-04-18 Pat Name: Lexii Lopez Department: 113 Room: 3B44 Gender: F It Infrastructure Consultant: [id number] : 1965 Requested By: Jerel Dang Order Number: [id number] Reading MD: Miriam Willingham Measurements Intervals [place] Rate: 79 P: 62 CO: 138 QRS: 263 QRSD: 83 T: 65 QT: 356 QTc: 391 Interpretive Statements SINUS RHYTHM LEFT AXIS DEVIATION Electronically Signed On 04-18-2019 8:57:44 EDT by Miriam Willingham
[2019-04-18] MEDS ORDERED: CarBAMazepine XR (12 hr) 100 MG TAB PO SCH (09:00)
--- NOTE | 2019-04-18 13:04 | Internal Med Progress Note ---
Hospitalist Progress Note - Encounter Date of Encounter: 04/18/19 Time of Encounter: 10:30 - Subjective Interval History: Ms. Lopez is a 54 year old female with known past medical history of COPD, diastolic CHF, hypertension, hyperlipidemia, seizure disorder and chronic tobacco dependence patient presented to ER with 5 day history of cough, wheezing, shortness of breath, subjective fevers, chills, and worsening hypoxemia. She was admitted in the hospital and placed her on monitoring analyst. She was started on high-dose IV steroids, frequent bronchodilators therapy and empirical antibiotic levofloxacin. Patient stated she is feeling little better today. She still have cough with expectoration and moderate shortness of breath/dyspnea on exertion - Exam Vitals: Temp Pulse Resp BP Pulse Ox 98.0 F 83 16 115/73 90 04/18/19 11:01 04/18/19 11:01 04/18/19 11:21 04/18/19 11:01 04/18/19 11:21 Exam: Gen: Alert, awake, Oriented to time,place and person Chest: Diminished breath sounds B/L, moderate wheezing, No crackles, No rales Heart: S1S2+ RRR No murmurs Abd: Soft, NT, BS +, No organomegaly Ext: No edema, pulses are palpable, No calf tenderness Neuro : No acute focal neuro deficits noticed Skin: No rash. - Assessment and Plan (1) COPD exacerbation Current Visit: Yes Status: Acute Assessment and Plan: Improving currently on 2.5 lit oxygen start tapering IV steroids continue frequent bronchodilator therapy continue empirical antibiotic levofloxacin continue home steroids + LABA Inhaler (2) Essential hypertension Current Visit: Yes Status: Chronic Assessment and Plan: Stable blood pressure continue current home medications (3) Polycythemia Current Visit: Yes Status: Chronic Assessment and Plan: Patient has scheduled phlebotomy every 2 months. Close monitor blood of counts while she is hospitalized. 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 - Time Spent with Patient Total time spent is greater than 50% in coordination of care (as documented) at patient's floor/unit and/or counseling patient: Internal Medicine: Result - Labs CBC & Chem 7: 04/17/19 21:19 04/17/19 21:19 Labs: Short CBC 04/17/19 Range/Units 21:19 WBC 15.0 H (4.3-11.1) K/mcL Hgb 15.3 (11.5-15.4) g/dL Hct 48.4 H (35.3-44.9) % Plt Count 393 (140-400) K/mcL Neutrophils # 11.7 H (1.6-8.9) K/mcL BMP 04/17/19 21:19 Sodium 141 Potassium 4.0 Chloride 103 Carbon Dioxide 29 BUN 14 Creatinine 0.69 Glucose 97 Calcium 9.4 Cardiac Enzymes 04/17/19 Range/Units 21:19 Troponin I < 0.03 (< 0.04) ng/mL Liver Function 04/17/19 Range/Units 21:19 Total Bilirubin 0.3 (0.3-1.0) mg/dL Direct Bilirubin 0.1 (0.0-0.2) mg/dL AST 13 (13-39) Units/L ALT 12 (7-52) Units/L Alkaline Phosphatase 89 (34-104) Units/L Albumin 4.3 (3.5-5.7) g/dL Urine 04/17/19 Range/Units 21:47 Urine Color Yellow (Yellow) Urine Clarity Clear (Clear) Urine pH 5.5 (5.0-8.0) pH Units Ur Specific [place] 1.027 H (1.010-1.025) Urine Protein Negative (Neg-Trace) mg/dL Urine Glucose (UA) Normal (Normal) mg/dL - ABG Interpretation ABG results: ABG ABG pH 7.38 pH Units (7.32-7.45) 04/17/19 21:59 ABG pCO2 58 mmHg (35-45) H 04/17/19 21:59 ABG pO2 80 mmHg (85-104) L 04/17/19 21:59 ABG O2 Saturation 95 % (95-98) 04/17/19 21:59 PT/INR, D-dimer PT 12.0 Seconds (9.4-12.1) 04/17/19 21:19 - Impressions Impressions Chest X-Ray 04/17/19 21:27 IMPRESSION: No acute process. D/ / Crow Dickinson MD / Crow Dickinson MD Interpreting Provider: Crow Dickinson MD Consult Discharge Plan - Plan Referrals: Leyla Bowman, [Primary Care Provider] -
[2019-04-18] MEDS: MethylPREDNISolone 40 MG/ML VIAL IVP SCH (16:21)
[2019-04-18] MEDS ORDERED: Melatonin 3 MG TABLET PO SCH (21:00)
[2019-04-18] MEDS ORDERED: Mirtazapine 15 MG TABLET PO SCH (21:00)
[2019-04-19] MEDS: Ipratropium/Albuterol Neb 3 ML IH SCH ×4 (00:30→10:50)
[2019-04-19 02:20] LABS: Basophils % 0.1 %; Immature Granulocytes % 0.9 % (0-4); Lymphocytes # 0.8 K/mcL (0.6-4.6); Lymphocytes % 4.4 %; Mean Corpuscular HGB Conc 32.1 g/dL (31.6-35.5); Mean Corpuscular Hemoglobin 30.1 pg (28.0-33.3); Mean Corpuscular Volume 93.8 fL (83.0-100.0); Mean Platelet Volume 9.6 fL (9.4-12.4); Monocytes # 0.6 K/mcL (0.0-1.3); Monocytes % 3.5 %; Neutrophils # 15.8 K/mcL (1.6-8.9); Platelet Count 330 K/mcL (140-400); Red Blood Count 4.48 M/mcL (3.82-4.97); Segmented Neutrophils % 91.1 %; White Blood Count 17.4 K/mcL (4.3-11.1)
[2019-04-19 02:22] LABS: Hemoglobin 13.5 g/dL (11.5-15.4)
[2019-04-19] MEDS: MethylPREDNISolone 40 MG/ML VIAL IVP SCH (05:43)
[2019-04-19 06:54] VITALS: BP 116/73
[2019-04-19] MEDS: Budesonide/Formoterol 160/4.5 1 PUFF INH IH SCH (07:24)
--- NOTE | 2019-04-19 09:31 | Discharge Summary ---
- NOTES TO OUTPATIENT PROVIDER Notes to Outpatient Provider: f/u with PCP in one week. f/u with Pulmonary in 1-2 weeks. Please quit smoking. Orders not resulted at time of discharge: Pending orders 04/17/19 21:40 Culture,Blood [BC] Stat Date of Encounter: 04/19/19 Time of Encounter: 09:29 - Discharge Diagnosis (1) Acute purulent bronchitis Priority: Primary Status: Acute (2) COPD exacerbation Priority: Primary Status: Acute (3) Essential hypertension Priority: Secondary Status: Chronic (4) Polycythemia Priority: Secondary Status: Chronic (5) Chronic respiratory failure with hypoxia Priority: Secondary Status: Acute (6) Superficial femoral artery occlusion Priority: Secondary Status: Chronic (7) Tobacco abuse Priority: Secondary Status: Chronic (8) DVT prophylaxis Priority: Secondary Status: Acute Hospital course: Ms. Lopez is a 54 year old female with known past medical history of COPD, diastolic CHF, hypertension, hyperlipidemia, seizure disorder and chronic tobacco dependence patient presented to ER with 5 day history of cough, wheezin g, shortness of breath, subjective fevers, chills, and worsening hypoxemia. She was admitted in the hospital and placed her on air sampling and monitoring. She was started on high-dose IV steroids, frequent bronchodilators therapy and empirical antibiotic levofloxacin. Patient stated she is feeling better today. She is currently on 3 lit O2 which is her baseline. Will d/c her home in stable condition today with PO tapering dose steroids and Abx. I did certified alcohol counselor her to quit smoking. - Time Spent with Patient Total time spent providing and/or coordinating discharge services: - Discharge Medications Prescriptions: New Levofloxacin [Levaquin] 500 mg PO DAILY #3 tablet Nicotine Patch [Nicoderm] 21 mg TD DAILY #30 patch.td24 predniSONE [PredniSONE] 40 mg PO DAILY #10 tablet Continued Albuterol Neb [Proventil Neb] 2.5 mg IH Q6H PRN PRN Reason: Shortness Of Breath Melatonin 10 mg PO HS Loxapine Succinate [Loxapine] 10 mg PO BID Guaifenesin [Mucinex] 600 mg PO BID Buspirone HCl [Buspar] 15 mg PO TID Lisinopril [Zestril] 10 mg PO DAILY Aspirin Enteric Coated [Aspirin EC] 81 mg PO DAILY tablet. Rivaroxaban [Xarelto] 20 mg PO DAILY #30 tablet Lurasidone HCl [Latuda] 60 mg PO DAILY Atorvastatin [Lipitor] 40 mg PO HS Cetirizine HCl [24Hour Allergy] 10 mg PO DAILY lamoTRIgine [Lamictal] 100 mg PO BID Roflumilast [Daliresp] 250 mcg PO DAILY Tiotropium [place] [Spiriva Respimat] 2 puff IH DAILY Albuterol Sulfate [Proventil Inhaler] 2 puff IH Q4H PRN #0 PRN Reason: Shortness Of Breath SUMAtriptan succinate [Imitrex] 50 mg PO DAILY PRN PRN Reason: Migraine Headache Home Medications: Albuterol Sulfate [Proventil Inhaler] 2 puff IH Q4H PRN #0 04/13/15 [History] SUMAtriptan succinate [Imitrex] 50 mg PO DAILY PRN 06/29/16 [History] Albuterol Neb [Proventil Neb] 2.5 mg IH Q6H PRN 01/15/17 [History] Buspirone HCl [Buspar] 15 mg PO TID 01/15/17 [History] Guaifenesin [Mucinex] 600 mg PO BID 01/15/17 [History] Lisinopril [Zestril] 10 mg PO DAILY 01/15/17 [History] Loxapine Succinate [Loxapine] 10 mg PO BID 01/15/17 [History] Melatonin 10 mg PO HS 01/15/17 [History] Aspirin Enteric Coated [Aspirin EC] 81 mg PO DAILY tablet. 01/16/17 [Rx] Rivaroxaban [Xarelto] 20 mg PO DAILY #30 tablet 01/16/17 [Rx] Lurasidone HCl [Latuda] 60 mg PO DAILY 04/17/19 [History] Atorvastatin [Lipitor] 40 mg PO HS 04/18/19 [History] Cetirizine HCl [24Hour Allergy] 10 mg PO DAILY 04/18/19 [History] Roflumilast [Daliresp] 250 mcg PO DAILY 04/18/19 [History] Tiotropium [place] [Spiriva Respimat] 2 puff IH DAILY 04/18/19 [History] lamoTRIgine [Lamictal] 100 mg PO BID 04/18/19 [History] Levofloxacin [Levaquin] 500 mg PO DAILY #3 tablet 04/19/19 [Rx] Nicotine Patch [Nicoderm] 21 mg TD DAILY #30 patch.td24 04/19/19 [Rx] predniSONE [PredniSONE] 40 mg PO DAILY #10 tablet 04/19/19 [Rx] Allergies/Adverse Reactions: Allergy/AdvReac Type Severity Reaction Status Date / Time divalproex sodium Allergy Unconscious Verified 01/15/17 15:10 [From Depakote] hydrocodone Allergy Itching Verified 01/15/17 15:10 orange Allergy Swelling Verified 01/15/17 15:10 of Lip/Tongue/Throat Penicillins [PCN] Allergy Rash Verified 01/15/17 15:10 venom-honey bee Allergy Swelling Verified 01/15/17 15:10 [bee venom (honey bee)] of Lip/Tongue/Throat Date of admission: 04/17/19 23:46 Primary care physician: Leyla Arevalo Consults: 04/18/19 11:46 Consult to Nurse Navigator [CONS] Routine Comment: COPD - Constitutional Vitals: Temp Pulse Resp BP Pulse Ox 98.3 F 76 16 116/73 98 04/19/19 06:52 04/19/19 06:52 04/19/19 06:52 04/19/19 06:52 04/19/19 06:52 General appearance: Present: cooperative, A&O X 3, answers questions appropriately. Absent: no acute distress Exam: Gen: Alert, awake, Oriented to time,place and person Chest: Diminished breath sounds B/L, Mild wheezing, No crackles, No rales Heart: S1S2+ RRR No murmurs Abd: Soft, NT, BS +, No organomegaly Ext: No edema, pulses are palpable, No calf tenderness Neuro : No acute focal neuro deficits noticed Skin: No rash. - Patient Status Disposition: Home Health Service Condition: Good Overall status at discharge: patient is back to baseline - Discharge Instructions Follow Up With: Leyla Bowman DO [Primary Care Provider] - Yessy Harry MD [Partnered Physician] - Additional Instructions: A hospital bed mattress and a cane have been ordered through [facility]. Please call them when you get home to have these delivered #[phone]. Home Health has been set up through [facility]. They will contact you with a date and time to complete admission. If you need to contact them please call #[phone] or #[phone]. - Diet and Activity Activity: increase activity as tolerated, wear oxygen at all times Diet: low salt diet
--- NOTE | 2019-04-19 09:45 | Physician Discharge Referral ---
Home Health/Hosp Referral Info Transfer to: Home Health Provider in Charge Post Discharge: PCP - Diagnosis (1) Acute purulent bronchitis Status: Acute (2) COPD exacerbation Status: Acute (3) Essential hypertension Status: Chronic (4) Polycythemia Status: Chronic (5) Chronic respiratory failure with hypoxia Status: Acute (6) Superficial femoral artery occlusion Status: Chronic (7) Tobacco abuse Status: Chronic (8) DVT prophylaxis Status: Acute - Respiratory Orders Smoking Cessation: Smoking cessation has been advised. For more information, call the [place] Tobacco Quit Line at 4-585-CVDR-NOW. - Services Needed Following services are medically necessary services: Nursing, Physical Therapy, Occupational Therapy - Transfer Medications Prescriptions: Levofloxacin [Levaquin] 500 mg PO DAILY #3 tablet Nicotine Patch [Nicoderm] 21 mg TD DAILY #30 patch.td24 predniSONE [PredniSONE] 40 mg PO DAILY #10 tablet Home Medications: Albuterol Sulfate [Proventil Inhaler] 2 puff IH Q4H PRN #0 04/13/15 [History] SUMAtriptan succinate [Imitrex] 50 mg PO DAILY PRN 06/29/16 [History] Albuterol Neb [Proventil Neb] 2.5 mg IH Q6H PRN 01/15/17 [History] Buspirone HCl [Buspar] 15 mg PO TID 01/15/17 [History] Guaifenesin [Mucinex] 600 mg PO BID 01/15/17 [History] Lisinopril [Zestril] 10 mg PO DAILY 01/15/17 [History] Loxapine Succinate [Loxapine] 10 mg PO BID 01/15/17 [History] Melatonin 10 mg PO HS 01/15/17 [History] Aspirin Enteric Coated [Aspirin EC] 81 mg PO DAILY tablet. 01/16/17 [Rx] Rivaroxaban [Xarelto] 20 mg PO DAILY #30 tablet 01/16/17 [Rx] Lurasidone HCl [Latuda] 60 mg PO DAILY 04/17/19 [History] Atorvastatin [Lipitor] 40 mg PO HS 04/18/19 [History] Cetirizine HCl [24Hour Allergy] 10 mg PO DAILY 04/18/19 [History] Roflumilast [Daliresp] 250 mcg PO DAILY 04/18/19 [History] Tiotropium [place] [Spiriva Respimat] 2 puff IH DAILY 04/18/19 [History] lamoTRIgine [Lamictal] 100 mg PO BID 04/18/19 [History] Levofloxacin [Levaquin] 500 mg PO DAILY #3 tablet 04/19/19 [Rx] Nicotine Patch [Nicoderm] 21 mg TD DAILY #30 patch.td24 04/19/19 [Rx] predniSONE [PredniSONE] 40 mg PO DAILY #10 tablet 04/19/19 [Rx] Allergies/Adverse Reactions: Allergy/AdvReac Type Severity Reaction Status Date / Time divalproex sodium Allergy Unconscious Verified 01/15/17 15:10 [From Depakote] hydrocodone Allergy Itching Verified 01/15/17 15:10 orange Allergy Swelling Verified 01/15/17 15:10 of Lip/Tongue/Throat Penicillins [PCN] Allergy Rash Verified 01/15/17 15:10 venom-honey bee Allergy Swelling Verified 01/15/17 15:10 [bee venom (honey bee)] of Lip/Tongue/Throat Certification: Further, I certify that my clinical findings support that this patient is homebound (i.e. absences from home require considerable and taxing effort and are for medical reasons or mormonism services or infrequently or short duration when for other reasons) because: Homebound Reason: Patient requires assistance of a person or device to safely leave home Attestation: My signature below is to certify that this patient is under my care and that I, or nurse practitioner, or a physician's medical administrative assistant working with me, has a [id number] encounter with this patient.
[2019-04-19] MEDS: Nicotine 21 MG PATCH.TD24 TD SCH (09:59)
[2019-04-19] MEDS: levoFLOXacin 750 MG/150 ML 750 MG/150 ML BAG IVPB SCH (09:59)
[2019-04-19] MEDS: Aspirin Enteric Coated 81 MG Tablet PO SCH (09:59)
[2019-04-19] MEDS: *HR* Rivaroxaban 10 MG TABLET PO SCH (09:59)
[2019-04-19] MEDS: Lurasidone 20 MG TABLET PO SCH (09:59)
== END 2019-04-19 11:01 | disposition home health service (06) ==
LOC: 3BNU 20:42 → EMEROOARM 20:42 → 3BNU 04-18 00:40
PROVIDERS: ADMIT Family Medicine; ATTEND Family Medicine